=== PATIENT | female | born 1935 | race Caucasian/White ===

== ENCOUNTER 2021-12-03 03:29 | Inpatient (IN) ==
[2021-12-03] MEDS ORDERED: ALBUTEROL 2.5 MG/3 ML NEB RESP TX PRN (05:20)
[2021-12-03] MEDS ORDERED: LACTULOSE 20 GM/30 ML UDCUP PO PRN (05:20)
[2021-12-03] MEDS ORDERED: ONDANSETRON 4 MG/2 ML VIAL IV PRN (05:20)
[2021-12-03] MEDS ORDERED: LORazepam INJ 40 MG in DEXTROSE 5% 30 ML IV PRN (05:20)
[2021-12-03] MEDS: SODIUM CHLORIDE 0.9% 1,000 ML IV SCH ×3 (05:37→21:40)
[2021-12-03] MEDS: NOREPINEPHRINE 8 MG in SODIUM CHLORIDE 0.9% 242 ML IV PRN (06:05)
[2021-12-03 06:25] LABS: Arterial Base Excess iSTAT -6 MMOL/L (-2.5-2.5); Arterial Bicarbonate iSTAT 20.2 MMOL/L (20-26); Arterial O2 Saturation iSTAT 97 % (95-100); Arterial PCO2 iSTAT 42 MM HG (35-48); Arterial PO2 iSTAT 100 MM HG (80-95); Arterial Total CO2 iSTAT 21 MMO/L (23-27)
[2021-12-03] MEDS: MIDAZOLAM 100 MG in SODIUM CHLORIDE 0.9% 80 ML IV PRN (06:50)
[2021-12-03 06:54] LABS: Basophils % 0.1 % (0.0-0.8); Hematocrit 30.5 VOL% (35.7-47.0); Hemoglobin 9.2 GM/DL (12.0-16.0); Immature Granulocytes % 0.4 %; Immature Granulocytes Absolute 0.06 #; Lymphocytes # 0.4 10*3/uL (1.4-4.0); Mean Corpuscular HGB Conc 30.2 GM/DL (32-36); Mean Corpuscular Volume 82.9 FL (87-102); Mean Platelet Volume 10.3 FL (9.6-12.0); Monocytes # 1.2 10*3/uL (0.11-0.8); Monocytes % 8.3 % (1.7-12.7); Neutrophils % 88.2 % (38.7-73.9); Platelet Count 177 T/CUMM (130-400); Red Blood Count 3.68 MC/CUMM (3.8-5.5); Red Cell Distribution Width 20.4 % (9.3-17.3); White Blood Count 13.8 T/CUMM (4-12)
[2021-12-03 07:02] LABS: PT Patient Result 10.7 SECS (10.1-12.1)
[2021-12-03] MEDS: ALBUTEROL/IPRATROPIUM 3 ML NEB RESP TX SCH ×3 (07:04→19:00)
[2021-12-03 07:13] LABS: Albumin 3.1 G/DL (3.4-5.0); Bilirubin,Total 0.8 MG/DL (0.20-1.00); Osmolality,Calculated 284.3 MOS/KG (273-304); Potassium 3.8 MMOL/L (3.5-5.1); Total Protein 6.8 G/DL (6.4-8.2)
[2021-12-03 07:14] LABS: Hypochromia Slight; Lymphocytes 3 % (20-55); Microcytosis Slight; Platelet Estimate Adequate; Total Cells Counted 100
[2021-12-03 08:28] LABS: Arterial Base Excess iSTAT -8 MMOL/L (-2.5-2.5); Arterial Bicarbonate iSTAT 18.8 MMOL/L (20-26); Arterial O2 Saturation iSTAT 97 % (95-100); Arterial PCO2 iSTAT 42 MM HG (35-48); Arterial PO2 iSTAT 106 MM HG (80-95); Arterial Total CO2 iSTAT 20 MMO/L (23-27); Arterial pH iSTAT 7.254 (7.35-7.45)
[2021-12-03 08:34] LABS: RBC,Urine 7 /HPF (0-4); Squamous Epithelial Cell,Urine Occasional /HPF (0-10); Uric Acid Crystals,Urine Many /HPF (<1)
[2021-12-03 08:35] LABS: Bilirubin,Urine Moderate mg/dL (Negative); Blood, Urine Negative (Negative); Glucose,Urine (UA) Negative (Negative); Ketones,Urine 40 mg/dL (Negative); Nitrite,Urine Negative (Negative); Protein,Urine 30 mg/dL (Negative); Urine Appearance Clear (Clear); Urine Color Yellow (Yellow); Urine Specific Gravity > 1.030 (1.001-1.035); Urine Urobilinogen 0.2 eU/dL (<2.0)
[2021-12-03] MEDS: PANTOPRAZOLE 40 MG VIAL IV SCH (08:59)
[2021-12-03] MEDS: PIPERACILLIN/TAZOBACTAM 3,375 MG in SODIUM CHLORIDE 0.9% 100 ML IV SCH ×3 (09:00→23:39)
[2021-12-03] MEDS ORDERED: SODIUM CHLORIDE 0.9% 500 ML IV ONE (09:43)
[2021-12-03 13:56] LABS: CKMB % 14.37 %
[2021-12-04 03:28] LABS: Basophils % 0.1 % (0.0-0.8); Hematocrit 24.1 VOL% (35.7-47.0); Hemoglobin 7.1 GM/DL (12.0-16.0); Immature Granulocytes % 0.4 %; Immature Granulocytes Absolute 0.03 #; Lymphocytes # 0.3 10*3/uL (1.4-4.0); Lymphocytes % 3.3 % (21.3-54.2); Mean Corpuscular HGB Conc 29.5 GM/DL (32-36); Mean Corpuscular Volume 84.3 FL (87-102); Mean Platelet Volume 10.3 FL (9.6-12.0); Monocytes # 0.5 10*3/uL (0.11-0.8); Monocytes % 6.7 % (1.7-12.7); Neutrophils % 89.5 % (38.7-73.9); Platelet Count 142 T/CUMM (130-400); Red Blood Count 2.86 MC/CUMM (3.8-5.5); Red Cell Distribution Width 19.9 % (9.3-17.3); White Blood Count 7.5 T/CUMM (4-12)
[2021-12-04 03:48] LABS: CKMB % 26.38 %
[2021-12-04 03:49] LABS: High Sensitive Troponin I* 1357.9 ng/L (0-54)
[2021-12-04 03:50] LABS: Band Neutrophils 2 % (0-10); Lymphocytes 2 % (20-55); Total Cells Counted 100
[2021-12-04 03:51] LABS: Hypochromia Slight
[2021-12-04 03:52] LABS: Microcytosis 1+; Ovalocytes Slight
[2021-12-04 03:53] LABS: Platelet Estimate Adequate
[2021-12-04 04:06] LABS: Albumin 2.4 G/DL (3.4-5.0); Bilirubin,Total 0.5 MG/DL (0.20-1.00); Calcium 8.5 MG/DL (8.5-10.1); Osmolality,Calculated 304.3 MOS/KG (273-304); Potassium 3.3 MMOL/L (3.5-5.1); Total Protein 5.4 G/DL (6.4-8.2)
[2021-12-04 04:26] LABS: Arterial Base Excess iSTAT -4 MMOL/L (-2.5-2.5); Arterial Bicarbonate iSTAT 21.6 MMOL/L (20-26); Arterial O2 Saturation iSTAT 98 % (95-100); Arterial PCO2 iSTAT 40 MM HG (35-48); Arterial PO2 iSTAT 118 MM HG (80-95); Arterial Total CO2 iSTAT 23 MMO/L (23-27); Arterial pH iSTAT 7.345 (7.35-7.45)
[2021-12-04] MEDS: SODIUM CHLORIDE 0.9% 1,000 ML IV SCH (06:11)
[2021-12-04] MEDS: ALBUTEROL/IPRATROPIUM 3 ML NEB RESP TX SCH ×4 (07:08→19:14)
[2021-12-04] MEDS ORDERED: MAGNESIUM SULF RIDER 4 GM/100 ML PREMIX IV PRN (07:42)
[2021-12-04] MEDS ORDERED: SODIUM CHLORIDE 0.9% 1,000 ML IV PRN (07:45)
[2021-12-04 08:19] LABS: % Iron Saturation 2.3 % (18-50); Ferritin 87.8 ng/mL (8-252)
[2021-12-04 08:22] LABS: Folate 17.24 NG/ML (5.38-24.0)
[2021-12-04] MEDS: POTASSIUM BICARB EFFERVESCENT 20 MEQ TAB.EFF PER TUBE PRN ×3 (08:38→13:29)
[2021-12-04] MEDS: CHOLECALCIFEROL 1,000 UNIT TABLET PO SCH (08:38)
[2021-12-04] MEDS: APIXABAN 2.5 MG TABLET PO SCH ×2 (08:38→21:06)
[2021-12-04] MEDS: DOCUSATE SODIUM 100 MG CAPSULE PO SCH (08:38)
[2021-12-04] MEDS: MULTIVITAMIN (CENTRUM) TABLET PO SCH (08:38)
[2021-12-04] MEDS: SERTRALINE 50 MG TABLET PO SCH (08:39)
[2021-12-04] MEDS: PANTOPRAZOLE 40 MG VIAL IV SCH (08:39)
[2021-12-04] MEDS: risperiDONE 1 MG TABLET PO SCH (08:39)
[2021-12-04] MEDS: PIPERACILLIN/TAZOBACTAM 3,375 MG in SODIUM CHLORIDE 0.9% 100 ML IV SCH ×2 (13:28→21:07)
[2021-12-04] MEDS: MAGNESIUM SULF RIDER 2 GM/50 ML PREMIX IV PRN (13:29)
[2021-12-04 13:36] LABS: Hematocrit 27.1 VOL% (35.7-47.0); Hemoglobin 8.1 GM/DL (12.0-16.0)
[2021-12-04] MEDS: NOREPINEPHRINE 8 MG in SODIUM CHLORIDE 0.9% 242 ML IV PRN (15:38)
[2021-12-04] MEDS: QUEtiapine 25 MG TABLET PO SCH (21:06)
[2021-12-05] MEDS: ALBUTEROL/IPRATROPIUM 3 ML NEB RESP TX SCH ×4 (00:23→19:07)
[2021-12-05 03:32] LABS: Basophils % 0.2 % (0.0-0.8); Eosinophils # 0.1 10*3/uL (0.0-0.87); Eosinophils % 1.6 % (0.00-10.9); Hematocrit 28.1 VOL% (35.7-47.0); Hemoglobin 8.5 GM/DL (12.0-16.0); Immature Granulocytes % 0.6 %; Immature Granulocytes Absolute 0.04 #; Lymphocytes # 0.4 10*3/uL (1.4-4.0); Lymphocytes % 6.3 % (21.3-54.2); Mean Corpuscular HGB Conc 30.2 GM/DL (32-36); Mean Corpuscular Volume 83.9 FL (87-102); Mean Platelet Volume 10.2 FL (9.6-12.0); Monocytes # 0.6 10*3/uL (0.11-0.8); Monocytes % 9.7 % (1.7-12.7); Neutrophils % 81.6 % (38.7-73.9); Platelet Count 151 T/CUMM (130-400); Red Blood Count 3.35 MC/CUMM (3.8-5.5); White Blood Count 6.4 T/CUMM (4-12)
[2021-12-05 04:05] LABS: Albumin 2.3 G/DL (3.4-5.0); Bilirubin,Total 0.4 MG/DL (0.20-1.00); Calcium 8.9 MG/DL (8.5-10.1); Osmolality,Calculated 298.6 MOS/KG (273-304); Potassium 4.3 MMOL/L (3.5-5.1); Total Protein 5.9 G/DL (6.4-8.2)
[2021-12-05 04:39] LABS: Arterial Base Excess iSTAT -1 MMOL/L (-2.5-2.5); Arterial Bicarbonate iSTAT 24.5 MMOL/L (20-26); Arterial O2 Saturation iSTAT 96 % (95-100); Arterial PCO2 iSTAT 42 MM HG (35-48); Arterial PO2 iSTAT 83 MM HG (80-95); Arterial Total CO2 iSTAT 26 MMO/L (23-27); Arterial pH iSTAT 7.379 (7.35-7.45)
[2021-12-05] MEDS: PIPERACILLIN/TAZOBACTAM 3,375 MG in SODIUM CHLORIDE 0.9% 100 ML IV SCH ×3 (05:50→21:29)
[2021-12-05] MEDS: CHOLECALCIFEROL 1,000 UNIT TABLET PO SCH (09:24)
[2021-12-05] MEDS: risperiDONE 1 MG TABLET PO SCH (09:24)
[2021-12-05] MEDS: DOCUSATE SODIUM 100 MG CAPSULE PO SCH (09:24)
[2021-12-05] MEDS: SERTRALINE 50 MG TABLET PO SCH (09:24)
[2021-12-05] MEDS: MULTIVITAMIN (CENTRUM) TABLET PO SCH (09:24)
[2021-12-05] MEDS: PANTOPRAZOLE 40 MG VIAL IV SCH (09:24)
[2021-12-05] MEDS: APIXABAN 2.5 MG TABLET PO SCH ×2 (09:24→20:36)
[2021-12-05] MEDS ORDERED: FUROSEMIDE 40 MG/4 ML VIAL IV ONE (13:41)
[2021-12-05] MEDS: FERROUS SULFATE 325 MG TABLET PO SCH (20:35)
[2021-12-05] MEDS: QUEtiapine 25 MG TABLET PO SCH (20:36)
[2021-12-06] MEDS: ALBUTEROL/IPRATROPIUM 3 ML NEB RESP TX SCH ×4 (00:07→19:56)
[2021-12-06 04:21] LABS: Arterial Base Excess iSTAT 4 MMOL/L (-2.5-2.5); Arterial Bicarbonate iSTAT 29.2 MMOL/L (20-26); Arterial O2 Saturation iSTAT 100 % (95-100); Arterial PCO2 iSTAT 49 MM HG (35-48); Arterial PO2 iSTAT 176 MM HG (80-95); Arterial Total CO2 iSTAT 31 MMO/L (23-27)
[2021-12-06 04:45] LABS: Basophils % 0.2 % (0.0-0.8); Eosinophils # 0.1 10*3/uL (0.0-0.87); Eosinophils % 1.2 % (0.00-10.9); Hematocrit 26.7 VOL% (35.7-47.0); Immature Granulocytes % 0.7 %; Immature Granulocytes Absolute 0.04 #; Lymphocytes # 0.5 10*3/uL (1.4-4.0); Lymphocytes % 9.6 % (21.3-54.2); Mean Corpuscular Volume 85.6 FL (87-102); Mean Platelet Volume 10.1 FL (9.6-12.0); Monocytes # 0.5 10*3/uL (0.11-0.8); Monocytes % 9.6 % (1.7-12.7); Neutrophils % 78.7 % (38.7-73.9); Platelet Count 151 T/CUMM (130-400); Red Blood Count 3.12 MC/CUMM (3.8-5.5); Red Cell Distribution Width 20.3 % (9.3-17.3); White Blood Count 5.6 T/CUMM (4-12)
[2021-12-06 04:47] LABS: Calcium 8.9 MG/DL (8.5-10.1); Osmolality,Calculated 297.8 MOS/KG (273-304); Potassium 4.1 MMOL/L (3.5-5.1)
[2021-12-06] MEDS: PIPERACILLIN/TAZOBACTAM 3,375 MG in SODIUM CHLORIDE 0.9% 100 ML IV SCH ×3 (05:26→21:07)
[2021-12-06] MEDS: MIDAZOLAM 100 MG in SODIUM CHLORIDE 0.9% 80 ML IV PRN (05:27)
[2021-12-06] MEDS: SERTRALINE 50 MG TABLET PO SCH (08:26)
[2021-12-06] MEDS: FERROUS SULFATE 325 MG TABLET PO SCH ×2 (08:26→20:42)
[2021-12-06] MEDS: DOCUSATE SODIUM 100 MG CAPSULE PO SCH (08:27)
[2021-12-06] MEDS: risperiDONE 1 MG TABLET PO SCH (08:27)
[2021-12-06] MEDS: APIXABAN 2.5 MG TABLET PO SCH ×2 (08:27→20:42)
[2021-12-06] MEDS: CHOLECALCIFEROL 1,000 UNIT TABLET PO SCH (08:27)
[2021-12-06] MEDS: MULTIVITAMIN (CENTRUM) TABLET PO SCH (08:27)
[2021-12-06] MEDS: PANTOPRAZOLE 40 MG VIAL IV SCH (09:13)
[2021-12-06] MEDS: methylPREDNISolone SOD SUC 40 MG/1 ML VIAL IV SCH ×2 (09:18→20:43)
[2021-12-06] MEDS ORDERED: DIGOXIN 0.5 MG/2 ML AMP IV ONE (13:02)
[2021-12-06] MEDS ORDERED: DEXTROSE 50% 25 GM/50 ML VIAL IV PRN (13:07)
[2021-12-06] MEDS ORDERED: DEXTROSE 10% 250 ML BAG IV PRN (13:07)
[2021-12-06] MEDS ORDERED: GLUCAGON 1 MG VIAL IM PRN (13:07)
[2021-12-06] MEDS: INSULIN LISPRO 100 UNIT/ML SUBCUT SCH (18:21)
[2021-12-06] MEDS ORDERED: tiZANidine 4 MG TABLET PO PRN (19:45)
[2021-12-06] MEDS: QUEtiapine 25 MG TABLET PO SCH (20:42)
[2021-12-06] MEDS: ACETAMINOPHEN 325 MG TABLET PO PRN (20:45)
[2021-12-07] MEDS: ALBUTEROL/IPRATROPIUM 3 ML NEB RESP TX SCH ×4 (00:24→19:00)
[2021-12-07] MEDS: INSULIN LISPRO 100 UNIT/ML SUBCUT SCH ×4 (00:28→17:46)
[2021-12-07] MEDS ORDERED: SODIUM CHLORIDE 0.9% 500 ML IV ONE (00:30)
[2021-12-07] MEDS ORDERED: METOPROLOL TARTRATE 5 MG/5 ML VIAL IV ONE (01:30)
[2021-12-07 04:29] LABS: Arterial Base Excess iSTAT 2 MMOL/L (-2.5-2.5); Arterial Bicarbonate iSTAT 27.1 MMOL/L (20-26); Arterial O2 Saturation iSTAT 96 % (95-100); Arterial PCO2 iSTAT 45 MM HG (35-48); Arterial PO2 iSTAT 84 MM HG (80-95); Arterial Total CO2 iSTAT 28 MMO/L (23-27); Arterial pH iSTAT 7.385 (7.35-7.45)
[2021-12-07 04:38] LABS: Basophils % 0.2 % (0.0-0.8); Hematocrit 26.1 VOL% (35.7-47.0); Hemoglobin 7.8 GM/DL (12.0-16.0); Immature Granulocytes % 2.8 %; Immature Granulocytes Absolute 0.13 #; Lymphocytes # 0.2 10*3/uL (1.4-4.0); Lymphocytes % 4.2 % (21.3-54.2); Mean Corpuscular HGB Conc 29.9 GM/DL (32-36); Mean Corpuscular Volume 84.2 FL (87-102); Mean Platelet Volume 10.8 FL (9.6-12.0); Monocytes # 0.1 10*3/uL (0.11-0.8); Monocytes % 2.8 % (1.7-12.7); Platelet Count 159 T/CUMM (130-400); Red Cell Distribution Width 20.4 % (9.3-17.3); White Blood Count 4.6 T/CUMM (4-12)
[2021-12-07 04:49] LABS: Osmolality,Calculated 303.8 MOS/KG (273-304); Potassium 4.7 MMOL/L (3.5-5.1)
[2021-12-07 04:58] LABS: Band Neutrophils 2 % (0-10); Hypochromia 1+; Lymphocytes 3 % (20-55); Total Cells Counted 100
[2021-12-07 04:59] LABS: Anisocytosis 1+; Microcytosis 1+
[2021-12-07] MEDS: PIPERACILLIN/TAZOBACTAM 3,375 MG in SODIUM CHLORIDE 0.9% 100 ML IV SCH ×3 (05:55→21:00)
[2021-12-07] MEDS: METOPROLOL TARTRATE 25 MG TABLET PO SCH ×2 (09:29→21:00)
[2021-12-07] MEDS: APIXABAN 2.5 MG TABLET PO SCH ×2 (09:30→20:59)
[2021-12-07] MEDS: risperiDONE 1 MG TABLET PO SCH (09:30)
[2021-12-07] MEDS: CHOLECALCIFEROL 1,000 UNIT TABLET PO SCH (09:30)
[2021-12-07] MEDS: MULTIVITAMIN (CENTRUM) TABLET PO SCH (09:30)
[2021-12-07] MEDS: SERTRALINE 50 MG TABLET PO SCH (09:30)
[2021-12-07] MEDS: FERROUS SULFATE 325 MG TABLET PO SCH ×2 (09:30→20:59)
[2021-12-07] MEDS: DOCUSATE SODIUM 100 MG CAPSULE PO SCH (09:30)
[2021-12-07] MEDS: methylPREDNISolone SOD SUC 40 MG/1 ML VIAL IV SCH ×2 (09:31→20:59)
[2021-12-07] MEDS: PANTOPRAZOLE 40 MG VIAL IV SCH (09:33)
[2021-12-07] MEDS ORDERED: FUROSEMIDE 40 MG/4 ML VIAL IV ONE (11:36)
[2021-12-07] MEDS: QUEtiapine 25 MG TABLET PO SCH (20:59)
[2021-12-08] MEDS: INSULIN LISPRO 100 UNIT/ML SUBCUT SCH ×4 (00:16→17:47)
[2021-12-08] MEDS: ALBUTEROL/IPRATROPIUM 3 ML NEB RESP TX SCH ×4 (00:48→19:20)
[2021-12-08 03:43] LABS: Basophils % 0.2 % (0.0-0.8); Hematocrit 28.9 VOL% (35.7-47.0); Hemoglobin 8.4 GM/DL (12.0-16.0); Immature Granulocytes % 1.8 %; Immature Granulocytes Absolute 0.08 #; Lymphocytes # 0.2 10*3/uL (1.4-4.0); Lymphocytes % 4.6 % (21.3-54.2); Mean Corpuscular HGB Conc 29.1 GM/DL (32-36); Mean Corpuscular Volume 85.8 FL (87-102); Mean Platelet Volume 10.5 FL (9.6-12.0); Monocytes # 0.1 10*3/uL (0.11-0.8); Monocytes % 2.1 % (1.7-12.7); NRBC # 0.02 10*3/uL; Neutrophils % 91.3 % (38.7-73.9); Platelet Count 180 T/CUMM (130-400); Red Blood Count 3.37 MC/CUMM (3.8-5.5); Red Cell Distribution Width 19.9 % (9.3-17.3); White Blood Count 4.4 T/CUMM (4-12)
[2021-12-08 03:55] LABS: Osmolality,Calculated 301.3 MOS/KG (273-304); Potassium 4.6 MMOL/L (3.5-5.1)
[2021-12-08 04:25] LABS: Lymphocytes 5 % (20-55); Total Cells Counted 100
[2021-12-08 04:26] LABS: Platelet Estimate Adequate
[2021-12-08 05:02] LABS: Arterial Base Excess iSTAT 5 MMOL/L (-2.5-2.5); Arterial O2 Saturation iSTAT 96 % (95-100); Arterial PCO2 iSTAT 50 MM HG (35-48); Arterial PO2 iSTAT 81 MM HG (80-95); Arterial Total CO2 iSTAT 33 MMO/L (23-27); Arterial pH iSTAT 7.401 (7.35-7.45)
[2021-12-08] MEDS: PIPERACILLIN/TAZOBACTAM 3,375 MG in SODIUM CHLORIDE 0.9% 100 ML IV SCH ×3 (05:32→21:00)
[2021-12-08] MEDS ORDERED: FUROSEMIDE 40 MG/4 ML VIAL IV ONE (09:00)
[2021-12-08] MEDS: METOPROLOL TARTRATE 25 MG TABLET PO SCH ×2 (09:07→20:58)
[2021-12-08] MEDS: DOCUSATE SODIUM 100 MG CAPSULE PO SCH (09:08)
[2021-12-08] MEDS: PANTOPRAZOLE 40 MG VIAL IV SCH (09:09)
[2021-12-08] MEDS: APIXABAN 2.5 MG TABLET PO SCH ×2 (09:09→20:58)
[2021-12-08] MEDS: CHOLECALCIFEROL 1,000 UNIT TABLET PO SCH (09:09)
[2021-12-08] MEDS: FERROUS SULFATE 325 MG TABLET PO SCH ×2 (09:09→20:59)
[2021-12-08] MEDS: MULTIVITAMIN (CENTRUM) TABLET PO SCH (09:09)
[2021-12-08] MEDS: risperiDONE 1 MG TABLET PO SCH (09:09)
[2021-12-08] MEDS: methylPREDNISolone SOD SUC 40 MG/1 ML VIAL IV SCH ×2 (09:14→20:59)
[2021-12-08] MEDS: SERTRALINE 50 MG TABLET PO SCH (09:16)
[2021-12-08] MEDS: ASPIRIN CHEW 81 MG TABLET PO SCH (12:02)
[2021-12-08 12:10] LABS: Risk Ratio 2.93; VLDL Cholesterol 26.2 MG/DL
[2021-12-08] MEDS: MIDAZOLAM 100 MG in SODIUM CHLORIDE 0.9% 80 ML IV PRN (20:32)
[2021-12-08] MEDS: ATORVASTATIN 80 MG TABLET PO SCH (20:58)
[2021-12-08] MEDS: QUEtiapine 25 MG TABLET PO SCH (20:58)
[2021-12-09] MEDS: INSULIN LISPRO 100 UNIT/ML SUBCUT SCH ×4 (00:28→17:59)
[2021-12-09] MEDS: ALBUTEROL/IPRATROPIUM 3 ML NEB RESP TX SCH ×4 (00:48→19:06)
[2021-12-09 03:28] LABS: Basophils % 0.3 % (0.0-0.8); Hematocrit 29.4 VOL% (35.7-47.0); Hemoglobin 8.9 GM/DL (12.0-16.0); Immature Granulocytes % 6.3 %; Immature Granulocytes Absolute 0.25 #; Lymphocytes # 0.2 10*3/uL (1.4-4.0); Lymphocytes % 5.8 % (21.3-54.2); Mean Corpuscular HGB Conc 30.3 GM/DL (32-36); Mean Corpuscular Volume 83.3 FL (87-102); Mean Platelet Volume 10.7 FL (9.6-12.0); Monocytes # 0.1 10*3/uL (0.11-0.8); Monocytes % 3.3 % (1.7-12.7); NRBC # 0.02 10*3/uL; Neutrophils % 84.3 % (38.7-73.9); Platelet Count 228 T/CUMM (130-400); Red Blood Count 3.53 MC/CUMM (3.8-5.5); Red Cell Distribution Width 19.8 % (9.3-17.3)
[2021-12-09 03:40] LABS: Calcium 8.9 MG/DL (8.5-10.1); Osmolality,Calculated 302.3 MOS/KG (273-304); Potassium 4.2 MMOL/L (3.5-5.1)
[2021-12-09 04:02] LABS: Lymphocytes 7 % (20-55); Nucleated Red Blood Cells 1 /100 WBC (0-5); Total Cells Counted 100
[2021-12-09 04:03] LABS: Anisocytosis 1+; Hypochromia 1+; Microcytosis 1+; Polychromasia Slight
[2021-12-09 04:05] LABS: Platelet Estimate Normal
[2021-12-09 04:45] LABS: Arterial Base Excess iSTAT 7 MMOL/L (-2.5-2.5); Arterial Bicarbonate iSTAT 31.2 MMOL/L (20-26); Arterial O2 Saturation iSTAT 95 % (95-100); Arterial PCO2 iSTAT 40 MM HG (35-48); Arterial PO2 iSTAT 70 MM HG (80-95); Arterial Total CO2 iSTAT 32 MMO/L (23-27)
[2021-12-09] MEDS: PIPERACILLIN/TAZOBACTAM 3,375 MG in SODIUM CHLORIDE 0.9% 100 ML IV SCH ×3 (05:43→21:34)
[2021-12-09] MEDS: DOCUSATE SODIUM 100 MG CAPSULE PO SCH (09:20)
[2021-12-09] MEDS: METOPROLOL TARTRATE 25 MG TABLET PO SCH ×2 (09:21→20:49)
[2021-12-09] MEDS: PANTOPRAZOLE 40 MG VIAL IV SCH (09:22)
[2021-12-09] MEDS: APIXABAN 2.5 MG TABLET PO SCH ×2 (09:22→20:49)
[2021-12-09] MEDS: FERROUS SULFATE 325 MG TABLET PO SCH ×2 (09:22→20:49)
[2021-12-09] MEDS: MULTIVITAMIN (CENTRUM) TABLET PO SCH (09:22)
[2021-12-09] MEDS: ASPIRIN CHEW 81 MG TABLET PO SCH (09:22)
[2021-12-09] MEDS: CHOLECALCIFEROL 1,000 UNIT TABLET PO SCH (09:22)
[2021-12-09] MEDS: risperiDONE 1 MG TABLET PO SCH (09:22)
[2021-12-09] MEDS: SERTRALINE 50 MG TABLET PO SCH (09:22)
[2021-12-09] MEDS: methylPREDNISolone SOD SUC 40 MG/1 ML VIAL IV SCH ×2 (09:25→20:49)
[2021-12-09] MEDS: QUEtiapine 25 MG TABLET PO SCH (20:49)
[2021-12-09] MEDS: ATORVASTATIN 80 MG TABLET PO SCH (20:49)
[2021-12-10] MEDS: INSULIN LISPRO 100 UNIT/ML SUBCUT SCH ×4 (00:06→17:49)
[2021-12-10] MEDS: ALBUTEROL/IPRATROPIUM 3 ML NEB RESP TX SCH ×4 (00:26→19:49)
[2021-12-10 03:19] LABS: Arterial Base Excess iSTAT 10 MMOL/L (-2.5-2.5); Arterial Bicarbonate iSTAT 34.1 MMOL/L (20-26); Arterial O2 Saturation iSTAT 99 % (95-100); Arterial PCO2 iSTAT 43 MM HG (35-48); Arterial PO2 iSTAT 119 MM HG (80-95); Arterial Total CO2 iSTAT 35 MMO/L (23-27); Arterial pH iSTAT 7.505 (7.35-7.45)
[2021-12-10 04:07] LABS: Basophils % 0.2 % (0.0-0.8); Hematocrit 30.6 VOL% (35.7-47.0); Hemoglobin 9.2 GM/DL (12.0-16.0); Immature Granulocytes % 5.2 %; Immature Granulocytes Absolute 0.24 #; Lymphocytes # 0.3 10*3/uL (1.4-4.0); Lymphocytes % 5.6 % (21.3-54.2); Mean Corpuscular HGB Conc 30.1 GM/DL (32-36); Mean Corpuscular Volume 83.4 FL (87-102); Mean Platelet Volume 10.3 FL (9.6-12.0); Monocytes # 0.2 10*3/uL (0.11-0.8); Monocytes % 3.9 % (1.7-12.7); Neutrophils % 85.1 % (38.7-73.9); Platelet Count 278 T/CUMM (130-400); Red Blood Count 3.67 MC/CUMM (3.8-5.5); Red Cell Distribution Width 19.7 % (9.3-17.3); White Blood Count 4.6 T/CUMM (4-12)
[2021-12-10 04:18] LABS: Calcium 8.5 MG/DL (8.5-10.1); Potassium 4.8 MMOL/L (3.5-5.1)
[2021-12-10 04:27] LABS: Hypochromia Slight; Lymphocytes 8 % (20-55); Microcytosis Slight; Platelet Estimate Adequate; Total Cells Counted 100
[2021-12-10] MEDS: PIPERACILLIN/TAZOBACTAM 3,375 MG in SODIUM CHLORIDE 0.9% 100 ML IV SCH ×3 (05:20→21:08)
[2021-12-10] MEDS: ASPIRIN CHEW 81 MG TABLET PO SCH (08:30)
[2021-12-10] MEDS: FERROUS SULFATE 325 MG TABLET PO SCH ×2 (08:30→21:09)
[2021-12-10] MEDS: METOPROLOL TARTRATE 25 MG TABLET PO SCH ×2 (08:31→21:09)
[2021-12-10] MEDS: risperiDONE 1 MG TABLET PO SCH (08:31)
[2021-12-10] MEDS: CHOLECALCIFEROL 1,000 UNIT TABLET PO SCH (08:31)
[2021-12-10] MEDS: SERTRALINE 50 MG TABLET PO SCH (08:31)
[2021-12-10] MEDS: APIXABAN 2.5 MG TABLET PO SCH ×2 (08:31→21:09)
[2021-12-10] MEDS: MULTIVITAMIN (CENTRUM) TABLET PO SCH (08:31)
[2021-12-10] MEDS: PANTOPRAZOLE 40 MG VIAL IV SCH (08:33)
[2021-12-10] MEDS: methylPREDNISolone SOD SUC 40 MG/1 ML VIAL IV SCH ×2 (08:34→21:08)
[2021-12-10] MEDS: DOCUSATE SODIUM 100 MG CAPSULE PO SCH (08:37)
[2021-12-10] MEDS ORDERED: METOPROLOL TARTRATE 25 MG TABLET PO ONE (09:57)
[2021-12-10] MEDS: ATORVASTATIN 80 MG TABLET PO SCH (21:09)
[2021-12-10] MEDS: QUEtiapine 25 MG TABLET PO SCH (21:09)
[2021-12-11] MEDS: INSULIN LISPRO 100 UNIT/ML SUBCUT SCH ×5 (00:08→23:55)
[2021-12-11 03:32] LABS: Basophils % 0.2 % (0.0-0.8); Hematocrit 30.3 VOL% (35.7-47.0); Immature Granulocytes % 3.5 %; Lymphocytes # 0.3 10*3/uL (1.4-4.0); Lymphocytes % 4.8 % (21.3-54.2); Mean Corpuscular HGB Conc 29.7 GM/DL (32-36); Mean Corpuscular Volume 84.4 FL (87-102); Mean Platelet Volume 10.3 FL (9.6-12.0); Monocytes # 0.2 10*3/uL (0.11-0.8); Neutrophils % 88.5 % (38.7-73.9); Platelet Count 318 T/CUMM (130-400); Red Blood Count 3.59 MC/CUMM (3.8-5.5); Red Cell Distribution Width 19.8 % (9.3-17.3); White Blood Count 5.7 T/CUMM (4-12)
[2021-12-11 03:51] LABS: Calcium 8.4 MG/DL (8.5-10.1); Osmolality,Calculated 300.1 MOS/KG (273-304); Potassium 4.7 MMOL/L (3.5-5.1)
[2021-12-11 04:07] LABS: Band Neutrophils 1 % (0-10); Hypochromia Slight; Lymphocytes 2 % (20-55); Total Cells Counted 100
[2021-12-11 04:08] LABS: Microcytosis 1+; Polychromasia Slight
[2021-12-11] MEDS: PIPERACILLIN/TAZOBACTAM 3,375 MG in SODIUM CHLORIDE 0.9% 100 ML IV SCH (06:08)
[2021-12-11] MEDS: ALBUTEROL/IPRATROPIUM 3 ML NEB RESP TX SCH ×4 (07:46→19:32)
[2021-12-11] MEDS: methylPREDNISolone SOD SUC 40 MG/1 ML VIAL IV SCH ×2 (08:57→20:33)
[2021-12-11] MEDS: PANTOPRAZOLE 40 MG VIAL IV SCH (08:57)
[2021-12-11] MEDS: risperiDONE 1 MG TABLET PO SCH (08:58)
[2021-12-11] MEDS: MULTIVITAMIN (CENTRUM) TABLET PO SCH (08:58)
[2021-12-11] MEDS: APIXABAN 2.5 MG TABLET PO SCH ×2 (08:58→20:34)
[2021-12-11] MEDS: ASPIRIN CHEW 81 MG TABLET PO SCH (08:58)
[2021-12-11] MEDS: METOPROLOL TARTRATE 25 MG TABLET PO SCH ×2 (08:58→20:34)
[2021-12-11] MEDS: CHOLECALCIFEROL 1,000 UNIT TABLET PO SCH (08:58)
[2021-12-11] MEDS: SERTRALINE 50 MG TABLET PO SCH (08:58)
[2021-12-11] MEDS: FERROUS SULFATE 325 MG TABLET PO SCH ×2 (08:58→20:34)
[2021-12-11] MEDS: DOCUSATE SODIUM 100 MG CAPSULE PO SCH (08:59)
[2021-12-11] MEDS: ATORVASTATIN 80 MG TABLET PO SCH (20:34)
[2021-12-11] MEDS: QUEtiapine 25 MG TABLET PO SCH (20:34)
[2021-12-12] MEDS: ALBUTEROL/IPRATROPIUM 3 ML NEB RESP TX SCH ×4 (00:37→17:00)
[2021-12-12 04:26] LABS: Basophils % 0.1 % (0.0-0.8); Hematocrit 29.9 VOL% (35.7-47.0); Hemoglobin 8.9 GM/DL (12.0-16.0); Immature Granulocytes % 2.4 %; Immature Granulocytes Absolute 0.17 #; Lymphocytes # 0.4 10*3/uL (1.4-4.0); Lymphocytes % 5.6 % (21.3-54.2); Mean Corpuscular HGB Conc 29.8 GM/DL (32-36); Monocytes # 0.3 10*3/uL (0.11-0.8); Monocytes % 3.6 % (1.7-12.7); Neutrophils % 88.3 % (38.7-73.9); Platelet Count 357 T/CUMM (130-400); Red Blood Count 3.56 MC/CUMM (3.8-5.5); Red Cell Distribution Width 19.8 % (9.3-17.3)
[2021-12-12 04:42] LABS: Calcium 8.4 MG/DL (8.5-10.1); Osmolality,Calculated 296.1 MOS/KG (273-304); Potassium 4.6 MMOL/L (3.5-5.1)
[2021-12-12] MEDS: INSULIN LISPRO 100 UNIT/ML SUBCUT SCH ×4 (05:50→23:37)
[2021-12-12] MEDS: PANTOPRAZOLE 40 MG VIAL IV SCH (09:10)
[2021-12-12] MEDS: methylPREDNISolone SOD SUC 40 MG/1 ML VIAL IV SCH ×2 (09:10→20:26)
[2021-12-12] MEDS: MULTIVITAMIN (CENTRUM) TABLET PO SCH (09:10)
[2021-12-12] MEDS: CHOLECALCIFEROL 1,000 UNIT TABLET PO SCH (09:11)
[2021-12-12] MEDS: ASPIRIN CHEW 81 MG TABLET PO SCH (09:11)
[2021-12-12] MEDS: SERTRALINE 50 MG TABLET PO SCH (09:11)
[2021-12-12] MEDS: DOCUSATE SODIUM 100 MG CAPSULE PO SCH (09:11)
[2021-12-12] MEDS: APIXABAN 2.5 MG TABLET PO SCH ×2 (09:11→20:26)
[2021-12-12] MEDS: METOPROLOL TARTRATE 25 MG TABLET PO SCH ×2 (09:11→20:26)
[2021-12-12] MEDS: FERROUS SULFATE 325 MG TABLET PO SCH ×2 (09:11→20:26)
[2021-12-12] MEDS: risperiDONE 1 MG TABLET PO SCH (09:11)
[2021-12-12] MEDS: SODIUM CHLORIDE 0.9% 1,000 ML IV SCH ×2 (09:13→22:10)
[2021-12-12] MEDS: ACETAMINOPHEN 325 MG TABLET PO PRN (10:43)
[2021-12-12] MEDS: QUEtiapine 25 MG TABLET PO SCH (20:25)
[2021-12-12] MEDS: ATORVASTATIN 80 MG TABLET PO SCH (20:26)
[2021-12-13] MEDS: ALBUTEROL/IPRATROPIUM 3 ML NEB RESP TX SCH ×5 (00:35→23:06)
[2021-12-13 04:28] LABS: Hematocrit 31.2 VOL% (35.7-47.0); Hemoglobin 9.2 GM/DL (12.0-16.0); Immature Granulocytes % 1.4 %; Immature Granulocytes Absolute 0.11 #; Lymphocytes # 0.4 10*3/uL (1.4-4.0); Lymphocytes % 5.5 % (21.3-54.2); Mean Corpuscular HGB Conc 29.5 GM/DL (32-36); Mean Platelet Volume 10.1 FL (9.6-12.0); Monocytes # 0.2 10*3/uL (0.11-0.8); Monocytes % 2.9 % (1.7-12.7); Neutrophils % 90.2 % (38.7-73.9); Platelet Count 403 T/CUMM (130-400); Red Blood Count 3.67 MC/CUMM (3.8-5.5); Red Cell Distribution Width 19.7 % (9.3-17.3); White Blood Count 7.9 T/CUMM (4-12)
[2021-12-13 04:44] LABS: Calcium 8.5 MG/DL (8.5-10.1); Osmolality,Calculated 302.7 MOS/KG (273-304); Potassium 4.6 MMOL/L (3.5-5.1)
[2021-12-13] MEDS: INSULIN LISPRO 100 UNIT/ML SUBCUT SCH ×4 (05:35→23:29)
[2021-12-13] MEDS: methylPREDNISolone SOD SUC 40 MG/1 ML VIAL IV SCH ×2 (08:57→20:49)
[2021-12-13] MEDS: PANTOPRAZOLE 40 MG VIAL IV SCH (08:57)
[2021-12-13] MEDS: METOPROLOL TARTRATE 25 MG TABLET PO SCH ×2 (08:58→20:21)
[2021-12-13] MEDS: ASPIRIN CHEW 81 MG TABLET PO SCH (08:58)
[2021-12-13] MEDS: FERROUS SULFATE 325 MG TABLET PO SCH ×2 (08:58→20:22)
[2021-12-13] MEDS: CHOLECALCIFEROL 1,000 UNIT TABLET PO SCH (08:58)
[2021-12-13] MEDS: risperiDONE 1 MG TABLET PO SCH (08:58)
[2021-12-13] MEDS: DOCUSATE SODIUM 100 MG CAPSULE PO SCH (08:58)
[2021-12-13] MEDS: APIXABAN 2.5 MG TABLET PO SCH ×2 (08:58→20:21)
[2021-12-13] MEDS: SERTRALINE 50 MG TABLET PO SCH (08:58)
[2021-12-13] MEDS: MULTIVITAMIN (CENTRUM) TABLET PO SCH (08:58)
[2021-12-13] MEDS: SODIUM CHLORIDE 0.9% 1,000 ML IV SCH (11:29)
[2021-12-13] MEDS: QUEtiapine 25 MG TABLET PO SCH (20:21)
[2021-12-13] MEDS: ATORVASTATIN 80 MG TABLET PO SCH (20:21)
[2021-12-13] MEDS: ACETAMINOPHEN 325 MG TABLET PO PRN (20:22)
[2021-12-14] MEDS: SODIUM CHLORIDE 0.9% 1,000 ML IV SCH ×2 (01:05→18:42)
[2021-12-14] MEDS ORDERED: METOPROLOL TARTRATE 5 MG/5 ML VIAL IV ONE ×4 (02:15→21:09)
[2021-12-14 03:55] LABS: Basophils % 0.1 % (0.0-0.8); Hematocrit 31.5 VOL% (35.7-47.0); Hemoglobin 9.4 GM/DL (12.0-16.0); Immature Granulocytes % 1.4 %; Immature Granulocytes Absolute 0.12 #; Lymphocytes # 0.4 10*3/uL (1.4-4.0); Lymphocytes % 4.2 % (21.3-54.2); Mean Corpuscular HGB Conc 29.8 GM/DL (32-36); Mean Corpuscular Volume 84.9 FL (87-102); Mean Platelet Volume 9.9 FL (9.6-12.0); Monocytes # 0.1 10*3/uL (0.11-0.8); Monocytes % 1.3 % (1.7-12.7); Platelet Count 448 T/CUMM (130-400); Red Blood Count 3.71 MC/CUMM (3.8-5.5); Red Cell Distribution Width 19.7 % (9.3-17.3); White Blood Count 8.5 T/CUMM (4-12)
[2021-12-14 04:12] LABS: Calcium 8.4 MG/DL (8.5-10.1); Osmolality,Calculated 301.7 MOS/KG (273-304); Potassium 4.4 MMOL/L (3.5-5.1)
[2021-12-14 04:59] LABS: Lymphocytes 5 % (20-55); Total Cells Counted 100
[2021-12-14 05:00] LABS: Platelet Estimate Increased
[2021-12-14] MEDS: INSULIN LISPRO 100 UNIT/ML SUBCUT SCH ×3 (05:21→18:42)
[2021-12-14] MEDS: ALBUTEROL/IPRATROPIUM 3 ML NEB RESP TX SCH ×3 (07:22→18:53)
[2021-12-14] MEDS: ASPIRIN CHEW 81 MG TABLET PO SCH (17:08)
[2021-12-14] MEDS: FERROUS SULFATE 325 MG TABLET PO SCH ×2 (17:08→20:15)
[2021-12-14] MEDS: DOCUSATE SODIUM 100 MG CAPSULE PO SCH (17:08)
[2021-12-14] MEDS: APIXABAN 2.5 MG TABLET PO SCH ×2 (17:08→20:15)
[2021-12-14] MEDS: MULTIVITAMIN (CENTRUM) TABLET PO SCH (17:08)
[2021-12-14] MEDS: risperiDONE 1 MG TABLET PO SCH (17:09)
[2021-12-14] MEDS: PANTOPRAZOLE 40 MG VIAL IV SCH (17:09)
[2021-12-14] MEDS: methylPREDNISolone SOD SUC 40 MG/1 ML VIAL IV SCH ×2 (17:09→20:16)
[2021-12-14] MEDS: METOPROLOL TARTRATE 25 MG TABLET PO SCH ×2 (17:09→20:15)
[2021-12-14] MEDS: CHOLECALCIFEROL 1,000 UNIT TABLET PO SCH (17:10)
[2021-12-14] MEDS: SERTRALINE 50 MG TABLET PO SCH (17:10)
[2021-12-14] MEDS: QUEtiapine 25 MG TABLET PO SCH (20:15)
[2021-12-14] MEDS: ATORVASTATIN 80 MG TABLET PO SCH (20:15)
[2021-12-14] MEDS ORDERED: FUROSEMIDE 40 MG/4 ML VIAL IV ONE (21:26)
[2021-12-15] MEDS: ALBUTEROL/IPRATROPIUM 3 ML NEB RESP TX SCH ×4 (00:05→19:15)
[2021-12-15] MEDS: INSULIN LISPRO 100 UNIT/ML SUBCUT SCH ×5 (00:05→21:05)
[2021-12-15 04:38] LABS: Hematocrit 29.8 VOL% (35.7-47.0); Hemoglobin 8.7 GM/DL (12.0-16.0); Immature Granulocytes % 0.7 %; Immature Granulocytes Absolute 0.06 #; Lymphocytes # 0.3 10*3/uL (1.4-4.0); Lymphocytes % 3.1 % (21.3-54.2); Mean Corpuscular HGB Conc 29.2 GM/DL (32-36); Mean Corpuscular Volume 85.1 FL (87-102); Mean Platelet Volume 10.3 FL (9.6-12.0); Monocytes # 0.2 10*3/uL (0.11-0.8); Monocytes % 1.8 % (1.7-12.7); Neutrophils % 94.4 % (38.7-73.9); Platelet Count 469 T/CUMM (130-400); Red Cell Distribution Width 19.9 % (9.3-17.3); White Blood Count 9.1 T/CUMM (4-12)
[2021-12-15 04:46] LABS: Calcium 8.9 MG/DL (8.5-10.1); Osmolality,Calculated 300.7 MOS/KG (273-304); Potassium 3.9 MMOL/L (3.5-5.1)
[2021-12-15 07:41] LABS: Lymphocytes 4 % (20-55); Total Cells Counted 100
[2021-12-15 07:42] LABS: Hypochromia 1+; Microcytosis 1+; Polychromasia Slight
[2021-12-15 07:43] LABS: Platelet Estimate Increased
[2021-12-15] MEDS: MULTIVITAMIN (CENTRUM) TABLET PO SCH (08:40)
[2021-12-15] MEDS: ASPIRIN CHEW 81 MG TABLET PO SCH (08:40)
[2021-12-15] MEDS: FERROUS SULFATE 325 MG TABLET PO SCH ×2 (08:41→21:05)
[2021-12-15] MEDS: APIXABAN 2.5 MG TABLET PO SCH ×2 (08:41→21:05)
[2021-12-15] MEDS: risperiDONE 1 MG TABLET PO SCH (08:41)
[2021-12-15] MEDS: CHOLECALCIFEROL 1,000 UNIT TABLET PO SCH (08:41)
[2021-12-15] MEDS: methylPREDNISolone SOD SUC 40 MG/1 ML VIAL IV SCH ×2 (08:41→21:06)
[2021-12-15] MEDS: METOPROLOL TARTRATE 25 MG TABLET PO SCH ×2 (08:41→21:05)
[2021-12-15] MEDS: SERTRALINE 50 MG TABLET PO SCH (08:41)
[2021-12-15] MEDS: DOCUSATE SODIUM 100 MG CAPSULE PO SCH (08:42)
[2021-12-15] MEDS: PANTOPRAZOLE 40 MG VIAL IV SCH (08:42)
[2021-12-15] MEDS: QUEtiapine 25 MG TABLET PO SCH (21:05)
[2021-12-15] MEDS: ATORVASTATIN 80 MG TABLET PO SCH (21:05)
[2021-12-15] MEDS: POTASSIUM CHLORIDE 20 MEQ TABLET PO PRN (21:06)
[2021-12-15] MEDS: MAGNESIUM SULF RIDER 2 GM/50 ML PREMIX IV PRN (21:07)
[2021-12-16] MEDS: ALBUTEROL/IPRATROPIUM 3 ML NEB RESP TX SCH ×4 (00:34→19:15)
[2021-12-16 03:58] LABS: Hematocrit 31.1 VOL% (35.7-47.0); Hemoglobin 9.2 GM/DL (12.0-16.0); Immature Granulocytes % 0.5 %; Immature Granulocytes Absolute 0.02 #; Lymphocytes # 0.3 10*3/uL (1.4-4.0); Lymphocytes % 6.7 % (21.3-54.2); Mean Corpuscular HGB Conc 29.6 GM/DL (32-36); Mean Corpuscular Volume 85.2 FL (87-102); Mean Platelet Volume 10.3 FL (9.6-12.0); Monocytes # 0.2 10*3/uL (0.11-0.8); Monocytes % 4.1 % (1.7-12.7); Neutrophils % 88.7 % (38.7-73.9); Platelet Count 489 T/CUMM (130-400); Red Blood Count 3.65 MC/CUMM (3.8-5.5); Red Cell Distribution Width 19.9 % (9.3-17.3); White Blood Count 4.2 T/CUMM (4-12)
[2021-12-16 04:15] LABS: Calcium 8.5 MG/DL (8.5-10.1); Osmolality,Calculated 304.3 MOS/KG (273-304); Potassium 4.5 MMOL/L (3.5-5.1)
[2021-12-16] MEDS: INSULIN LISPRO 100 UNIT/ML SUBCUT SCH ×4 (07:43→20:09)
[2021-12-16] MEDS: FERROUS SULFATE 325 MG TABLET PO SCH ×2 (08:36→20:08)
[2021-12-16] MEDS: risperiDONE 1 MG TABLET PO SCH (08:36)
[2021-12-16] MEDS: MULTIVITAMIN (CENTRUM) TABLET PO SCH (08:36)
[2021-12-16] MEDS: CHOLECALCIFEROL 1,000 UNIT TABLET PO SCH (08:36)
[2021-12-16] MEDS: SERTRALINE 50 MG TABLET PO SCH (08:36)
[2021-12-16] MEDS: APIXABAN 2.5 MG TABLET PO SCH ×2 (08:36→20:08)
[2021-12-16] MEDS: METOPROLOL TARTRATE 25 MG TABLET PO SCH ×2 (08:36→20:08)
[2021-12-16] MEDS: ASPIRIN CHEW 81 MG TABLET PO SCH (08:36)
[2021-12-16] MEDS: DOCUSATE SODIUM 100 MG CAPSULE PO SCH ×2 (08:36→09:01)
[2021-12-16] MEDS: PANTOPRAZOLE 40 MG VIAL IV SCH (08:37)
[2021-12-16] MEDS: methylPREDNISolone SOD SUC 40 MG/1 ML VIAL IV SCH (08:37)
[2021-12-16] MEDS ORDERED: methylPREDNISolone SOD SUC 40 MG/1 ML VIAL IV ONE (09:13)
[2021-12-16] MEDS: ATORVASTATIN 80 MG TABLET PO SCH (20:08)
[2021-12-16] MEDS: QUEtiapine 25 MG TABLET PO SCH (20:08)
[2021-12-17] MEDS: ALBUTEROL/IPRATROPIUM 3 ML NEB RESP TX SCH ×5 (00:52→23:51)
[2021-12-17 04:29] LABS: Calcium 8.5 MG/DL (8.5-10.1); Potassium 3.4 MMOL/L (3.5-5.1)
[2021-12-17 04:32] LABS: Eosinophils % 0.5 % (0.00-10.9); Hematocrit 29.2 VOL% (35.7-47.0); Immature Granulocytes % 0.4 %; Immature Granulocytes Absolute 0.02 #; Lymphocytes # 1.1 10*3/uL (1.4-4.0); Lymphocytes % 18.7 % (21.3-54.2); Mean Corpuscular HGB Conc 29.5 GM/DL (32-36); Mean Corpuscular Volume 85.1 FL (87-102); Mean Platelet Volume 10.1 FL (9.6-12.0); Monocytes # 0.4 10*3/uL (0.11-0.8); Monocytes % 7.1 % (1.7-12.7); Neutrophils % 73.3 % (38.7-73.9); Platelet Count 479 T/CUMM (130-400); Red Blood Count 3.43 MC/CUMM (3.8-5.5); Red Cell Distribution Width 20.2 % (9.3-17.3); White Blood Count 5.6 T/CUMM (4-12)
[2021-12-17 04:33] LABS: Hemoglobin 8.6 GM/DL (12.0-16.0)
[2021-12-17] MEDS: hydrALAZINE 20 MG/1 ML VIAL IV PRN (06:10)
[2021-12-17] MEDS: INSULIN LISPRO 100 UNIT/ML SUBCUT SCH ×4 (08:26→21:23)
[2021-12-17] MEDS: APIXABAN 2.5 MG TABLET PO SCH ×2 (09:20→21:22)
[2021-12-17] MEDS: DOCUSATE SODIUM 100 MG CAPSULE PO SCH (09:20)
[2021-12-17] MEDS: ASPIRIN CHEW 81 MG TABLET PO SCH (09:20)
[2021-12-17] MEDS: MULTIVITAMIN (CENTRUM) TABLET PO SCH (09:20)
[2021-12-17] MEDS: FERROUS SULFATE 325 MG TABLET PO SCH ×2 (09:21→21:22)
[2021-12-17] MEDS: CHOLECALCIFEROL 1,000 UNIT TABLET PO SCH (09:22)
[2021-12-17] MEDS: FUROSEMIDE 40 MG TABLET PO SCH (09:22)
[2021-12-17] MEDS: METOPROLOL TARTRATE 50 MG TABLET PO SCH ×2 (09:22→21:23)
[2021-12-17] MEDS: SERTRALINE 50 MG TABLET PO SCH (09:22)
[2021-12-17] MEDS: risperiDONE 1 MG TABLET PO SCH (09:22)
[2021-12-17 18:37] LABS: Arterial Base Excess iSTAT 6 MMOL/L (-2.5-2.5); Arterial Bicarbonate iSTAT 30.5 MMOL/L (20-26); Arterial O2 Saturation iSTAT 97 % (95-100); Arterial PCO2 iSTAT 45 MM HG (35-48); Arterial PO2 iSTAT 87 MM HG (80-95); Arterial Total CO2 iSTAT 32 MMO/L (23-27); Arterial pH iSTAT 7.437 (7.35-7.45)
[2021-12-17] MEDS: ATORVASTATIN 80 MG TABLET PO SCH (21:23)
[2021-12-17] MEDS: QUEtiapine 25 MG TABLET PO SCH (21:23)
[2021-12-18 04:56] LABS: Basophils % 0.2 % (0.0-0.8); Eosinophils # 0.1 10*3/uL (0.0-0.87); Eosinophils % 1.8 % (0.00-10.9); Hematocrit 31.9 VOL% (35.7-47.0); Hemoglobin 9.3 GM/DL (12.0-16.0); Immature Granulocytes % 0.2 %; Immature Granulocytes Absolute 0.01 #; Lymphocytes # 0.9 10*3/uL (1.4-4.0); Lymphocytes % 19.6 % (21.3-54.2); Mean Corpuscular HGB Conc 29.2 GM/DL (32-36); Mean Corpuscular Volume 85.8 FL (87-102); Monocytes # 0.6 10*3/uL (0.11-0.8); Neutrophils % 65.2 % (38.7-73.9); Platelet Count 405 T/CUMM (130-400); Red Blood Count 3.72 MC/CUMM (3.8-5.5); Red Cell Distribution Width 20.2 % (9.3-17.3); White Blood Count 4.4 T/CUMM (4-12)
[2021-12-18 05:20] LABS: Calcium 8.4 MG/DL (8.5-10.1); Osmolality,Calculated 292.7 MOS/KG (273-304); Potassium 3.8 MMOL/L (3.5-5.1)
[2021-12-18] MEDS ORDERED: POTASSIUM BICARB EFFERVESCENT 20 MEQ TAB.EFF PO ONE (05:28)
[2021-12-18] MEDS: MAGNESIUM SULF RIDER 2 GM/50 ML PREMIX IV PRN (06:07)
[2021-12-18] MEDS: ALBUTEROL/IPRATROPIUM 3 ML NEB RESP TX SCH ×2 (06:50→12:25)
[2021-12-18] MEDS: INSULIN LISPRO 100 UNIT/ML SUBCUT SCH ×4 (07:37→21:40)
[2021-12-18 08:48] LABS: Arterial Base Excess iSTAT 6 MMOL/L (-2.5-2.5); Arterial Bicarbonate iSTAT 30.8 MMOL/L (20-26); Arterial O2 Saturation iSTAT 95 % (95-100); Arterial PCO2 iSTAT 46 MM HG (35-48); Arterial PO2 iSTAT 76 MM HG (80-95); Arterial Total CO2 iSTAT 32 MMO/L (23-27)
[2021-12-18] MEDS: ASPIRIN CHEW 81 MG TABLET PO SCH (09:47)
[2021-12-18] MEDS: MULTIVITAMIN (CENTRUM) TABLET PO SCH (09:47)
[2021-12-18] MEDS: DOCUSATE SODIUM 100 MG CAPSULE PO SCH (09:47)
[2021-12-18] MEDS: FERROUS SULFATE 325 MG TABLET PO SCH ×2 (09:48→20:52)
[2021-12-18] MEDS: PANTOPRAZOLE 40 MG TABLET PO SCH (09:48)
[2021-12-18] MEDS: APIXABAN 2.5 MG TABLET PO SCH ×2 (09:48→20:52)
[2021-12-18] MEDS: risperiDONE 1 MG TABLET PO SCH (09:48)
[2021-12-18] MEDS: SERTRALINE 50 MG TABLET PO SCH (09:48)
[2021-12-18] MEDS: CHOLECALCIFEROL 1,000 UNIT TABLET PO SCH (09:48)
[2021-12-18] MEDS: METOPROLOL TARTRATE 50 MG TABLET PO SCH ×2 (09:48→20:52)
[2021-12-18] MEDS: ISOSORBIDE MONONITRATE 30 MG TABLET PO SCH (09:48)
[2021-12-18] MEDS: FUROSEMIDE 40 MG TABLET PO SCH (09:48)
[2021-12-18] MEDS: ATORVASTATIN 80 MG TABLET PO SCH (20:52)
[2021-12-19] MEDS: ALBUTEROL/IPRATROPIUM 3 ML NEB RESP TX SCH ×5 (00:03→19:10)
[2021-12-19 04:34] LABS: Eosinophils # 0.1 10*3/uL (0.0-0.87); Eosinophils % 1.2 % (0.00-10.9); Hematocrit 30.5 VOL% (35.7-47.0); Hemoglobin 8.9 GM/DL (12.0-16.0); Immature Granulocytes % 0.5 %; Immature Granulocytes Absolute 0.02 #; Lymphocytes # 0.6 10*3/uL (1.4-4.0); Lymphocytes % 13.6 % (21.3-54.2); Mean Corpuscular HGB Conc 29.2 GM/DL (32-36); Mean Corpuscular Volume 85.9 FL (87-102); Mean Platelet Volume 9.8 FL (9.6-12.0); Monocytes # 0.4 10*3/uL (0.11-0.8); Monocytes % 8.6 % (1.7-12.7); Neutrophils % 76.1 % (38.7-73.9); Platelet Count 437 T/CUMM (130-400); Red Blood Count 3.55 MC/CUMM (3.8-5.5); White Blood Count 4.3 T/CUMM (4-12)
[2021-12-19 04:52] LABS: Calcium 8.3 MG/DL (8.5-10.1); Osmolality,Calculated 293.6 MOS/KG (273-304); Potassium 3.4 MMOL/L (3.5-5.1)
[2021-12-19] MEDS: METOPROLOL TARTRATE 50 MG TABLET PO SCH ×2 (08:46→21:03)
[2021-12-19] MEDS: POTASSIUM CHLORIDE 20 MEQ TABLET PO PRN ×3 (08:46→16:19)
[2021-12-19] MEDS: MULTIVITAMIN (CENTRUM) TABLET PO SCH (08:46)
[2021-12-19] MEDS: PANTOPRAZOLE 40 MG TABLET PO SCH (08:47)
[2021-12-19] MEDS: DOCUSATE SODIUM 100 MG CAPSULE PO SCH (08:47)
[2021-12-19] MEDS: CHOLECALCIFEROL 1,000 UNIT TABLET PO SCH (08:47)
[2021-12-19] MEDS: SERTRALINE 50 MG TABLET PO SCH (08:47)
[2021-12-19] MEDS: ISOSORBIDE MONONITRATE 30 MG TABLET PO SCH (08:47)
[2021-12-19] MEDS: FERROUS SULFATE 325 MG TABLET PO SCH ×2 (08:47→21:03)
[2021-12-19] MEDS: ASPIRIN CHEW 81 MG TABLET PO SCH (08:47)
[2021-12-19] MEDS: risperiDONE 1 MG TABLET PO SCH (08:47)
[2021-12-19] MEDS: FUROSEMIDE 40 MG TABLET PO SCH (08:47)
[2021-12-19] MEDS: APIXABAN 2.5 MG TABLET PO SCH ×2 (08:47→21:03)
[2021-12-19] MEDS ORDERED: FUROSEMIDE 40 MG/4 ML VIAL IV ONE (08:50)
[2021-12-19] MEDS: INSULIN LISPRO 100 UNIT/ML SUBCUT SCH ×4 (09:14→21:03)
[2021-12-19 09:59] LABS: Bilirubin,Urine Negative (Negative); Blood, Urine Small mg/dL (Negative); Glucose,Urine (UA) Negative (Negative); Ketones,Urine Negative (Negative); Mucus,Urine Occasional /LPF (Occasional); Nitrite,Urine Negative (Negative); Protein,Urine 30 mg/dL (Negative); RBC,Urine 37 /HPF (0-4); Urine Appearance CLOUDY (Clear); Urine Color Yellow (Yellow); Urine Specific Gravity 1.015 (1.001-1.035); Urine Urobilinogen < 2.0 eU/dL (<2.0)
[2021-12-19] MEDS ORDERED: METOPROLOL TARTRATE 5 MG/5 ML VIAL IV ONE (10:04)
[2021-12-19] MEDS: cefTRIAXone 1,000 MG in SODIUM CHLORIDE 0.9% 100 ML IV SCH (10:32)
[2021-12-19] MEDS: ATORVASTATIN 80 MG TABLET PO SCH (21:03)
[2021-12-20] MEDS: ALBUTEROL/IPRATROPIUM 3 ML NEB RESP TX SCH ×4 (00:03→20:00)
[2021-12-20 05:41] LABS: Basophils % 0.2 % (0.0-0.8); Eosinophils # 0.1 10*3/uL (0.0-0.87); Eosinophils % 2.1 % (0.00-10.9); Hemoglobin 9.7 GM/DL (12.0-16.0); Immature Granulocytes % 0.2 %; Immature Granulocytes Absolute 0.01 #; Lymphocytes # 0.8 10*3/uL (1.4-4.0); Lymphocytes % 14.9 % (21.3-54.2); Mean Corpuscular HGB Conc 29.4 GM/DL (32-36); Mean Corpuscular Volume 86.4 FL (87-102); Mean Platelet Volume 10.4 FL (9.6-12.0); Monocytes # 0.5 10*3/uL (0.11-0.8); Monocytes % 9.5 % (1.7-12.7); Neutrophils % 73.1 % (38.7-73.9); Platelet Count 450 T/CUMM (130-400); Red Blood Count 3.82 MC/CUMM (3.8-5.5); Red Cell Distribution Width 19.9 % (9.3-17.3); White Blood Count 5.3 T/CUMM (4-12)
[2021-12-20 05:58] LABS: Calcium 8.5 MG/DL (8.5-10.1); Osmolality,Calculated 295.4 MOS/KG (273-304); Potassium 3.5 MMOL/L (3.5-5.1)
[2021-12-20] MEDS: INSULIN LISPRO 100 UNIT/ML SUBCUT SCH ×4 (08:09→22:08)
[2021-12-20] MEDS: ASPIRIN CHEW 81 MG TABLET PO SCH (09:09)
[2021-12-20] MEDS: PANTOPRAZOLE 40 MG TABLET PO SCH (09:10)
[2021-12-20] MEDS: DOCUSATE SODIUM 100 MG CAPSULE PO SCH (09:10)
[2021-12-20] MEDS: risperiDONE 1 MG TABLET PO SCH (09:10)
[2021-12-20] MEDS: FERROUS SULFATE 325 MG TABLET PO SCH ×2 (09:10→22:07)
[2021-12-20] MEDS: ISOSORBIDE MONONITRATE 30 MG TABLET PO SCH (09:10)
[2021-12-20] MEDS: MULTIVITAMIN (CENTRUM) TABLET PO SCH (09:10)
[2021-12-20] MEDS: SERTRALINE 50 MG TABLET PO SCH (09:10)
[2021-12-20] MEDS: CHOLECALCIFEROL 1,000 UNIT TABLET PO SCH (09:10)
[2021-12-20] MEDS: APIXABAN 2.5 MG TABLET PO SCH ×2 (09:10→22:08)
[2021-12-20] MEDS: METOPROLOL TARTRATE 50 MG TABLET PO SCH ×3 (09:11→22:08)
[2021-12-20] MEDS: cefTRIAXone 1,000 MG in SODIUM CHLORIDE 0.9% 100 ML IV SCH (09:15)
[2021-12-20] MEDS: POTASSIUM CHLORIDE 20 MEQ TABLET PO PRN ×2 (12:14→16:55)
[2021-12-20] MEDS: ATORVASTATIN 80 MG TABLET PO SCH (22:07)
[2021-12-21] MEDS: ALBUTEROL/IPRATROPIUM 3 ML NEB RESP TX SCH ×4 (01:09→19:50)
[2021-12-21] MEDS: METOPROLOL TARTRATE 50 MG TABLET PO SCH ×5 (03:56→21:23)
[2021-12-21 05:46] LABS: Eosinophils # 0.1 10*3/uL (0.0-0.87); Eosinophils % 2.1 % (0.00-10.9); Hematocrit 29.1 VOL% (35.7-47.0); Hemoglobin 8.5 GM/DL (12.0-16.0); Immature Granulocytes % 0.5 %; Immature Granulocytes Absolute 0.02 #; Lymphocytes # 0.7 10*3/uL (1.4-4.0); Lymphocytes % 15.3 % (21.3-54.2); Mean Corpuscular HGB Conc 29.2 GM/DL (32-36); Mean Corpuscular Volume 86.6 FL (87-102); Mean Platelet Volume 10.4 FL (9.6-12.0); Monocytes # 0.4 10*3/uL (0.11-0.8); Monocytes % 8.2 % (1.7-12.7); Neutrophils % 73.9 % (38.7-73.9); Platelet Count 401 T/CUMM (130-400); Red Blood Count 3.36 MC/CUMM (3.8-5.5); Red Cell Distribution Width 19.9 % (9.3-17.3); White Blood Count 4.3 T/CUMM (4-12)
[2021-12-21 06:05] LABS: Albumin 2.7 G/DL (3.4-5.0); Bilirubin,Total 0.6 MG/DL (0.20-1.00); Calcium 8.6 MG/DL (8.5-10.1); Osmolality,Calculated 298.3 MOS/KG (273-304); Potassium 3.7 MMOL/L (3.5-5.1); Total Protein 5.9 G/DL (6.4-8.2)
[2021-12-21] MEDS: INSULIN LISPRO 100 UNIT/ML SUBCUT SCH ×4 (07:28→21:22)
[2021-12-21] MEDS: risperiDONE 1 MG TABLET PO SCH (09:15)
[2021-12-21] MEDS: MULTIVITAMIN (CENTRUM) TABLET PO SCH ×2 (09:15→09:29)
[2021-12-21] MEDS: FERROUS SULFATE 325 MG TABLET PO SCH ×3 (09:15→20:30)
[2021-12-21] MEDS: ISOSORBIDE MONONITRATE 30 MG TABLET PO SCH (09:15)
[2021-12-21] MEDS: ASPIRIN CHEW 81 MG TABLET PO SCH ×2 (09:15→09:29)
[2021-12-21] MEDS: DOCUSATE SODIUM 100 MG CAPSULE PO SCH ×2 (09:15→09:29)
[2021-12-21] MEDS: APIXABAN 2.5 MG TABLET PO SCH ×3 (09:16→21:22)
[2021-12-21] MEDS: CHOLECALCIFEROL 1,000 UNIT TABLET PO SCH (09:16)
[2021-12-21] MEDS: SERTRALINE 50 MG TABLET PO SCH (09:16)
[2021-12-21] MEDS: PANTOPRAZOLE 40 MG TABLET PO SCH (09:16)
[2021-12-21] MEDS: SODIUM CHLORIDE 0.45% 1,000 ML IV SCH (11:55)
[2021-12-21] MEDS: ATORVASTATIN 80 MG TABLET PO SCH (21:23)
[2021-12-22] MEDS: ALBUTEROL/IPRATROPIUM 3 ML NEB RESP TX SCH ×4 (00:38→19:04)
[2021-12-22] MEDS: SODIUM CHLORIDE 0.45% 1,000 ML IV SCH (02:17)
[2021-12-22] MEDS: METOPROLOL TARTRATE 50 MG TABLET PO SCH ×4 (03:46→20:34)
[2021-12-22 06:14] LABS: Eosinophils % 0.8 % (0.00-10.9); Hematocrit 30.1 VOL% (35.7-47.0); Hemoglobin 8.7 GM/DL (12.0-16.0); Immature Granulocytes % 0.6 %; Immature Granulocytes Absolute 0.03 #; Lymphocytes # 0.7 10*3/uL (1.4-4.0); Mean Corpuscular HGB Conc 28.9 GM/DL (32-36); Mean Corpuscular Volume 86.2 FL (87-102); Monocytes # 0.4 10*3/uL (0.11-0.8); Monocytes % 8.7 % (1.7-12.7); Neutrophils % 74.9 % (38.7-73.9); Platelet Count 393 T/CUMM (130-400); Red Blood Count 3.49 MC/CUMM (3.8-5.5); White Blood Count 4.7 T/CUMM (4-12)
[2021-12-22 06:22] LABS: Calcium 8.6 MG/DL (8.5-10.1); Osmolality,Calculated 294.4 MOS/KG (273-304); Potassium 3.5 MMOL/L (3.5-5.1)
[2021-12-22] MEDS: INSULIN LISPRO 100 UNIT/ML SUBCUT SCH ×4 (07:51→20:39)
[2021-12-22] MEDS: SERTRALINE 50 MG TABLET PO SCH (09:18)
[2021-12-22] MEDS: FERROUS SULFATE 325 MG TABLET PO SCH ×2 (09:18→20:34)
[2021-12-22] MEDS: ISOSORBIDE MONONITRATE 30 MG TABLET PO SCH (09:18)
[2021-12-22] MEDS: APIXABAN 2.5 MG TABLET PO SCH ×2 (09:18→20:34)
[2021-12-22] MEDS: MULTIVITAMIN (CENTRUM) TABLET PO SCH (09:18)
[2021-12-22] MEDS: PANTOPRAZOLE 40 MG TABLET PO SCH (09:18)
[2021-12-22] MEDS: risperiDONE 1 MG TABLET PO SCH (09:18)
[2021-12-22] MEDS: CHOLECALCIFEROL 1,000 UNIT TABLET PO SCH (09:18)
[2021-12-22] MEDS: ASPIRIN CHEW 81 MG TABLET PO SCH (09:18)
[2021-12-22] MEDS: DOCUSATE SODIUM 100 MG CAPSULE PO SCH (09:18)
[2021-12-22] MEDS: DEXTROSE 5% 1,000 ML IV SCH (12:28)
[2021-12-22] MEDS: POTASSIUM CHLORIDE 20 MEQ TABLET PO PRN ×2 (16:56→16:57)
[2021-12-22] MEDS: ATORVASTATIN 80 MG TABLET PO SCH (20:34)
[2021-12-23] MEDS: ALBUTEROL/IPRATROPIUM 3 ML NEB RESP TX SCH ×4 (00:13→19:50)
[2021-12-23] MEDS: METOPROLOL TARTRATE 50 MG TABLET PO SCH ×4 (03:28→20:40)
[2021-12-23 05:57] LABS: Basophils % 0.2 % (0.0-0.8); Eosinophils # 0.1 10*3/uL (0.0-0.87); Eosinophils % 0.9 % (0.00-10.9); Hematocrit 29.7 VOL% (35.7-47.0); Hemoglobin 8.5 GM/DL (12.0-16.0); Immature Granulocytes % 0.4 %; Immature Granulocytes Absolute 0.02 #; Lymphocytes # 0.8 10*3/uL (1.4-4.0); Lymphocytes % 14.1 % (21.3-54.2); Mean Corpuscular HGB Conc 28.6 GM/DL (32-36); Mean Corpuscular Volume 86.1 FL (87-102); Mean Platelet Volume 10.7 FL (9.6-12.0); Monocytes # 0.5 10*3/uL (0.11-0.8); Monocytes % 8.7 % (1.7-12.7); Neutrophils % 75.7 % (38.7-73.9); Platelet Count 311 T/CUMM (130-400); Red Blood Count 3.45 MC/CUMM (3.8-5.5); Red Cell Distribution Width 19.7 % (9.3-17.3); White Blood Count 5.5 T/CUMM (4-12)
[2021-12-23 06:02] LABS: Calcium 8.5 MG/DL (8.5-10.1); Osmolality,Calculated 292.6 MOS/KG (273-304); Potassium 3.6 MMOL/L (3.5-5.1)
[2021-12-23 06:25] LABS: Anisocytosis 1+; Platelet Estimate Normal
[2021-12-23] MEDS: INSULIN LISPRO 100 UNIT/ML SUBCUT SCH ×4 (07:24→20:00)
[2021-12-23] MEDS: DOCUSATE SODIUM 100 MG CAPSULE PO SCH (08:39)
[2021-12-23] MEDS: SERTRALINE 50 MG TABLET PO SCH (08:39)
[2021-12-23] MEDS: MULTIVITAMIN (CENTRUM) TABLET PO SCH (08:39)
[2021-12-23] MEDS: APIXABAN 2.5 MG TABLET PO SCH ×2 (08:39→20:40)
[2021-12-23] MEDS: ISOSORBIDE MONONITRATE 30 MG TABLET PO SCH (08:39)
[2021-12-23] MEDS: FERROUS SULFATE 325 MG TABLET PO SCH ×2 (08:39→20:40)
[2021-12-23] MEDS: PANTOPRAZOLE 40 MG TABLET PO SCH (08:39)
[2021-12-23] MEDS: ASPIRIN CHEW 81 MG TABLET PO SCH (08:39)
[2021-12-23] MEDS: risperiDONE 1 MG TABLET PO SCH (08:39)
[2021-12-23] MEDS: CHOLECALCIFEROL 1,000 UNIT TABLET PO SCH (08:40)
[2021-12-23] MEDS: DEXTROSE 5% 1,000 ML IV SCH (09:15)
[2021-12-23 11:21] LABS: % Iron Saturation 6.8 % (18-50)
[2021-12-23 11:29] LABS: Folate > 24.00 NG/ML (5.38-24.0); Vitamin B12 703 PG/ML (211-911)
[2021-12-23] MEDS ORDERED: FERRIC GLUCONATE COMPLEX 125 MG in SODIUM CHLORIDE 0.9% 100 ML IV ONE (14:12)
[2021-12-23] MEDS ORDERED: FERRIC GLUCONATE COMPLEX 125 MG in SODIUM CHLORIDE 0.9% 100 ML IV SCH (14:30)
[2021-12-23] MEDS: ACETAMINOPHEN 325 MG TABLET PO PRN (20:40)
[2021-12-23] MEDS: ATORVASTATIN 80 MG TABLET PO SCH (20:40)
[2021-12-24] MEDS: ALBUTEROL/IPRATROPIUM 3 ML NEB RESP TX SCH ×4 (00:35→19:32)
[2021-12-24] MEDS: METOPROLOL TARTRATE 50 MG TABLET PO SCH ×4 (02:17→21:50)
[2021-12-24 05:46] LABS: Calcium 8.7 MG/DL (8.5-10.1); Osmolality,Calculated 287.8 MOS/KG (273-304); Potassium 3.7 MMOL/L (3.5-5.1)
[2021-12-24 06:04] LABS: Basophils % 0.2 % (0.0-0.8); Eosinophils # 0.1 10*3/uL (0.0-0.87); Eosinophils % 1.9 % (0.00-10.9); Hematocrit 31.1 VOL% (35.7-47.0); Hemoglobin 9.1 GM/DL (12.0-16.0); Immature Granulocytes % 0.2 %; Immature Granulocytes Absolute 0.01 #; Lymphocytes # 0.8 10*3/uL (1.4-4.0); Lymphocytes % 16.9 % (21.3-54.2); Mean Corpuscular HGB Conc 29.3 GM/DL (32-36); Mean Platelet Volume 10.7 FL (9.6-12.0); Monocytes # 0.5 10*3/uL (0.11-0.8); Neutrophils % 69.8 % (38.7-73.9); Platelet Count 292 T/CUMM (130-400); Red Blood Count 3.66 MC/CUMM (3.8-5.5); Red Cell Distribution Width 19.8 % (9.3-17.3); White Blood Count 4.7 T/CUMM (4-12)
[2021-12-24] MEDS: MULTIVITAMIN (CENTRUM) TABLET PO SCH (09:29)
[2021-12-24] MEDS: DOCUSATE SODIUM 100 MG CAPSULE PO SCH (09:29)
[2021-12-24] MEDS: ASPIRIN CHEW 81 MG TABLET PO SCH (09:30)
[2021-12-24] MEDS: SERTRALINE 50 MG TABLET PO SCH (09:30)
[2021-12-24] MEDS: ISOSORBIDE MONONITRATE 30 MG TABLET PO SCH (09:30)
[2021-12-24] MEDS: risperiDONE 1 MG TABLET PO SCH (09:30)
[2021-12-24] MEDS: APIXABAN 2.5 MG TABLET PO SCH ×2 (09:30→21:50)
[2021-12-24] MEDS: FERROUS SULFATE 325 MG TABLET PO SCH ×2 (09:30→21:50)
[2021-12-24] MEDS: PANTOPRAZOLE 40 MG TABLET PO SCH (09:30)
[2021-12-24] MEDS: CHOLECALCIFEROL 1,000 UNIT TABLET PO SCH (09:30)
[2021-12-24] MEDS: DEXTROSE 5% 1,000 ML IV SCH (09:42)
[2021-12-24] MEDS: INSULIN LISPRO 100 UNIT/ML SUBCUT SCH ×4 (10:53→21:51)
[2021-12-24] MEDS: ATORVASTATIN 80 MG TABLET PO SCH (21:50)
[2021-12-25] MEDS: ALBUTEROL/IPRATROPIUM 3 ML NEB RESP TX SCH ×4 (03:45→19:05)
[2021-12-25] MEDS: DEXTROSE 5% 1,000 ML IV SCH (04:59)
[2021-12-25] MEDS: METOPROLOL TARTRATE 50 MG TABLET PO SCH ×4 (04:59→21:57)
[2021-12-25 05:02] LABS: Eosinophils % 0.4 % (0.00-10.9); Hematocrit 29.5 VOL% (35.7-47.0); Hemoglobin 8.7 GM/DL (12.0-16.0); Immature Granulocytes % 0.5 %; Immature Granulocytes Absolute 0.03 #; Lymphocytes # 0.5 10*3/uL (1.4-4.0); Lymphocytes % 8.8 % (21.3-54.2); Mean Corpuscular HGB Conc 29.5 GM/DL (32-36); Mean Platelet Volume 10.4 FL (9.6-12.0); Monocytes # 0.2 10*3/uL (0.11-0.8); Monocytes % 4.1 % (1.7-12.7); Neutrophils % 86.2 % (38.7-73.9); Platelet Count 264 T/CUMM (130-400); Red Blood Count 3.47 MC/CUMM (3.8-5.5); Red Cell Distribution Width 19.5 % (9.3-17.3); White Blood Count 5.6 T/CUMM (4-12)
[2021-12-25 05:42] LABS: Calcium 8.7 MG/DL (8.5-10.1); Osmolality,Calculated 288.8 MOS/KG (273-304); Potassium 3.5 MMOL/L (3.5-5.1)
[2021-12-25] MEDS: INSULIN LISPRO 100 UNIT/ML SUBCUT SCH ×4 (09:40→21:58)
[2021-12-25] MEDS: MULTIVITAMIN (CENTRUM) TABLET PO SCH (11:00)
[2021-12-25] MEDS: ASPIRIN CHEW 81 MG TABLET PO SCH (11:01)
[2021-12-25] MEDS: FERROUS SULFATE 325 MG TABLET PO SCH ×2 (11:01→21:57)
[2021-12-25] MEDS: PANTOPRAZOLE 40 MG TABLET PO SCH (11:01)
[2021-12-25] MEDS: APIXABAN 2.5 MG TABLET PO SCH ×2 (11:01→21:57)
[2021-12-25] MEDS: DOCUSATE SODIUM 100 MG CAPSULE PO SCH (11:01)
[2021-12-25] MEDS: CHOLECALCIFEROL 1,000 UNIT TABLET PO SCH (11:01)
[2021-12-25] MEDS: ISOSORBIDE MONONITRATE 30 MG TABLET PO SCH (11:01)
[2021-12-25] MEDS ORDERED: SERTRALINE 50 MG TABLET PO SCH (21:00)
[2021-12-25] MEDS: ATORVASTATIN 80 MG TABLET PO SCH (21:57)
[2021-12-25] MEDS: risperiDONE 1 MG TABLET PO SCH (21:57)
[2021-12-26] MEDS: ALBUTEROL/IPRATROPIUM 3 ML NEB RESP TX SCH ×4 (02:30→19:58)
[2021-12-26] MEDS: METOPROLOL TARTRATE 50 MG TABLET PO SCH ×4 (04:07→20:24)
[2021-12-26 05:54] LABS: Calcium 8.8 MG/DL (8.5-10.1); Osmolality,Calculated 289.6 MOS/KG (273-304); Potassium 3.2 MMOL/L (3.5-5.1)
[2021-12-26 05:56] LABS: Basophils % 0.4 % (0.0-0.8); Eosinophils # 0.1 10*3/uL (0.0-0.87); Eosinophils % 3.1 % (0.00-10.9); Hemoglobin 8.9 GM/DL (12.0-16.0); Immature Granulocytes % 0.4 %; Immature Granulocytes Absolute 0.01 #; Lymphocytes # 0.8 10*3/uL (1.4-4.0); Mean Corpuscular Volume 86.4 FL (87-102); Mean Platelet Volume 10.4 FL (9.6-12.0); Monocytes # 0.3 10*3/uL (0.11-0.8); Monocytes % 9.8 % (1.7-12.7); Neutrophils % 54.3 % (38.7-73.9); Platelet Count 241 T/CUMM (130-400); Red Blood Count 3.68 MC/CUMM (3.8-5.5); Red Cell Distribution Width 19.9 % (9.3-17.3); White Blood Count 2.6 T/CUMM (4-12)
[2021-12-26 05:57] LABS: Hematocrit 31.8 VOL% (35.7-47.0)
[2021-12-26] MEDS: ASPIRIN CHEW 81 MG TABLET PO SCH (09:48)
[2021-12-26] MEDS: FERROUS SULFATE 325 MG TABLET PO SCH ×2 (09:48→20:23)
[2021-12-26] MEDS: PANTOPRAZOLE 40 MG TABLET PO SCH (09:48)
[2021-12-26] MEDS: ISOSORBIDE MONONITRATE 30 MG TABLET PO SCH (09:48)
[2021-12-26] MEDS: DOCUSATE SODIUM 100 MG CAPSULE PO SCH (09:48)
[2021-12-26] MEDS: APIXABAN 2.5 MG TABLET PO SCH ×2 (09:48→20:22)
[2021-12-26] MEDS: CHOLECALCIFEROL 1,000 UNIT TABLET PO SCH (09:48)
[2021-12-26] MEDS: MULTIVITAMIN (CENTRUM) TABLET PO SCH (09:48)
[2021-12-26] MEDS: INSULIN LISPRO 100 UNIT/ML SUBCUT SCH ×4 (09:56→20:23)
[2021-12-26] MEDS: ATORVASTATIN 80 MG TABLET PO SCH (20:23)
[2021-12-26] MEDS: risperiDONE 1 MG TABLET PO SCH (20:24)
[2021-12-27] MEDS: ALBUTEROL/IPRATROPIUM 3 ML NEB RESP TX SCH ×4 (01:40→19:10)
[2021-12-27] MEDS: METOPROLOL TARTRATE 50 MG TABLET PO SCH ×4 (03:59→21:21)
[2021-12-27 06:56] LABS: Osmolality,Calculated 295.4 MOS/KG (273-304); Potassium 3.7 MMOL/L (3.5-5.1)
[2021-12-27 07:02] LABS: Basophils % 0.1 % (0.0-0.8); Hemoglobin 9.3 GM/DL (12.0-16.0); Immature Granulocytes % 0.9 %; Immature Granulocytes Absolute 0.07 #; Lymphocytes # 0.4 10*3/uL (1.4-4.0); Lymphocytes % 5.3 % (21.3-54.2); Mean Corpuscular HGB Conc 28.2 GM/DL (32-36); Mean Corpuscular Volume 87.1 FL (87-102); Mean Platelet Volume 10.6 FL (9.6-12.0); Monocytes # 0.3 10*3/uL (0.11-0.8); Monocytes % 3.7 % (1.7-12.7); Platelet Count 236 T/CUMM (130-400); Red Blood Count 3.79 MC/CUMM (3.8-5.5); Red Cell Distribution Width 19.8 % (9.3-17.3); White Blood Count 7.5 T/CUMM (4-12)
[2021-12-27] MEDS: ISOSORBIDE MONONITRATE 30 MG TABLET PO SCH (09:16)
[2021-12-27] MEDS: CHOLECALCIFEROL 1,000 UNIT TABLET PO SCH (09:16)
[2021-12-27] MEDS: DOCUSATE SODIUM 100 MG CAPSULE PO SCH (09:16)
[2021-12-27] MEDS: ASPIRIN CHEW 81 MG TABLET PO SCH (09:16)
[2021-12-27] MEDS: FERROUS SULFATE 325 MG TABLET PO SCH ×2 (09:16→21:17)
[2021-12-27] MEDS: MULTIVITAMIN (CENTRUM) TABLET PO SCH (09:16)
[2021-12-27] MEDS: APIXABAN 2.5 MG TABLET PO SCH ×2 (09:16→21:17)
[2021-12-27] MEDS: PANTOPRAZOLE 40 MG TABLET PO SCH (09:17)
[2021-12-27] MEDS: INSULIN LISPRO 100 UNIT/ML SUBCUT SCH ×4 (10:25→21:20)
[2021-12-27] MEDS: DEXTROSE 5% 1,000 ML IV SCH (13:58)
[2021-12-27] MEDS: risperiDONE 1 MG TABLET PO SCH (21:21)
[2021-12-27] MEDS: ATORVASTATIN 80 MG TABLET PO SCH (21:21)
[2021-12-28] MEDS: ALBUTEROL/IPRATROPIUM 3 ML NEB RESP TX SCH ×4 (00:20→21:01)
[2021-12-28] MEDS: METOPROLOL TARTRATE 50 MG TABLET PO SCH ×4 (02:55→21:41)
[2021-12-28 05:34] LABS: Calcium 8.9 MG/DL (8.5-10.1); Osmolality,Calculated 294.4 MOS/KG (273-304); Potassium 3.3 MMOL/L (3.5-5.1)
[2021-12-28 06:18] LABS: Basophils % 0.2 % (0.0-0.8); Eosinophils # 0.1 10*3/uL (0.0-0.87); Eosinophils % 2.5 % (0.00-10.9); Immature Granulocytes % 0.2 %; Immature Granulocytes Absolute 0.01 #; Lymphocytes % 21.2 % (21.3-54.2); Mean Corpuscular Volume 86.3 FL (87-102); Mean Platelet Volume 10.2 FL (9.6-12.0); Monocytes # 0.3 10*3/uL (0.11-0.8); Monocytes % 7.4 % (1.7-12.7); Neutrophils % 68.5 % (38.7-73.9); Platelet Count 205 T/CUMM (130-400); Red Cell Distribution Width 20.2 % (9.3-17.3); White Blood Count 4.5 T/CUMM (4-12)
[2021-12-28 06:22] LABS: Hematocrit 34.5 VOL% (35.7-47.0)
[2021-12-28] MEDS: INSULIN LISPRO 100 UNIT/ML SUBCUT SCH ×4 (08:27→21:42)
[2021-12-28] MEDS: DOCUSATE SODIUM 100 MG CAPSULE PO SCH (09:59)
[2021-12-28] MEDS: MULTIVITAMIN (CENTRUM) TABLET PO SCH (09:59)
[2021-12-28] MEDS: ISOSORBIDE MONONITRATE 30 MG TABLET PO SCH (09:59)
[2021-12-28] MEDS: APIXABAN 2.5 MG TABLET PO SCH ×2 (09:59→21:41)
[2021-12-28] MEDS: ASPIRIN CHEW 81 MG TABLET PO SCH (09:59)
[2021-12-28] MEDS: FERROUS SULFATE 325 MG TABLET PO SCH ×2 (09:59→21:41)
[2021-12-28] MEDS: PANTOPRAZOLE 40 MG TABLET PO SCH (10:00)
[2021-12-28] MEDS: CHOLECALCIFEROL 1,000 UNIT TABLET PO SCH (10:00)
[2021-12-28] MEDS: DEXTROSE 5% 1,000 ML IV SCH (11:04)
[2021-12-28] MEDS: ATORVASTATIN 80 MG TABLET PO SCH (21:40)
[2021-12-28] MEDS: risperiDONE 1 MG TABLET PO SCH (21:41)
[2021-12-28] MEDS: POTASSIUM CHLORIDE INJ 10 MEQ in DEXTROSE 5% 1,000 ML IV SCH (23:22)
[2021-12-29] MEDS: METOPROLOL TARTRATE 50 MG TABLET PO SCH ×4 (02:10→21:14)
[2021-12-29] MEDS: ALBUTEROL/IPRATROPIUM 3 ML NEB RESP TX SCH ×4 (02:37→20:55)
[2021-12-29 06:01] LABS: Calcium 8.4 MG/DL (8.5-10.1); Osmolality,Calculated 292.4 MOS/KG (273-304); Potassium 3.2 MMOL/L (3.5-5.1)
[2021-12-29 06:13] LABS: Basophils % 0.4 % (0.0-0.8); Eosinophils # 0.1 10*3/uL (0.0-0.87); Eosinophils % 3.3 % (0.00-10.9); Hematocrit 31.3 VOL% (35.7-47.0); Hemoglobin 8.7 GM/DL (12.0-16.0); Immature Granulocytes % 0.4 %; Immature Granulocytes Absolute 0.01 #; Lymphocytes # 0.7 10*3/uL (1.4-4.0); Lymphocytes % 24.4 % (21.3-54.2); Mean Corpuscular HGB Conc 27.8 GM/DL (32-36); Mean Corpuscular Volume 88.2 FL (87-102); Mean Platelet Volume 10.3 FL (9.6-12.0); Monocytes # 0.3 10*3/uL (0.11-0.8); Monocytes % 9.2 % (1.7-12.7); Neutrophils % 62.3 % (38.7-73.9); Platelet Count 163 T/CUMM (130-400); Red Blood Count 3.55 MC/CUMM (3.8-5.5); Red Cell Distribution Width 19.9 % (9.3-17.3); White Blood Count 2.7 T/CUMM (4-12)
[2021-12-29] MEDS: ISOSORBIDE MONONITRATE 30 MG TABLET PO SCH (10:55)
[2021-12-29] MEDS: CHOLECALCIFEROL 1,000 UNIT TABLET PO SCH (10:55)
[2021-12-29] MEDS: MULTIVITAMIN (CENTRUM) TABLET PO SCH (10:55)
[2021-12-29] MEDS: PANTOPRAZOLE 40 MG TABLET PO SCH (10:55)
[2021-12-29] MEDS: ASPIRIN CHEW 81 MG TABLET PO SCH (10:55)
[2021-12-29] MEDS: DOCUSATE SODIUM 100 MG CAPSULE PO SCH (10:55)
[2021-12-29] MEDS: FERROUS SULFATE 325 MG TABLET PO SCH ×2 (10:56→21:14)
[2021-12-29] MEDS: APIXABAN 2.5 MG TABLET PO SCH ×2 (10:56→21:14)
[2021-12-29] MEDS: INSULIN LISPRO 100 UNIT/ML SUBCUT SCH ×4 (10:57→21:14)
[2021-12-29] MEDS ORDERED: POTASSIUM CHLORIDE 20 MEQ TABLET PO ONE (11:14)
[2021-12-29] MEDS: POTASSIUM BICARB EFFERVESCENT 20 MEQ TAB.EFF PER TUBE PRN ×3 (11:50→18:20)
[2021-12-29 16:10] LABS: % Iron Saturation 11.7 % (18-50)
[2021-12-29 16:15] LABS: Folate > 24.00 NG/ML (5.38-24.0); Vitamin B12 712 PG/ML (211-911)
[2021-12-29] MEDS: POTASSIUM CHLORIDE INJ 10 MEQ in DEXTROSE 5% 1,000 ML IV SCH (18:30)
[2021-12-29] MEDS: risperiDONE 1 MG TABLET PO SCH (21:14)
[2021-12-29] MEDS: ATORVASTATIN 80 MG TABLET PO SCH (21:14)
[2021-12-30] MEDS: ALBUTEROL/IPRATROPIUM 3 ML NEB RESP TX SCH ×4 (01:51→19:11)
[2021-12-30] MEDS: METOPROLOL TARTRATE 50 MG TABLET PO SCH ×4 (03:16→20:48)
[2021-12-30 05:45] LABS: Calcium 8.7 MG/DL (8.5-10.1); Osmolality,Calculated 287.7 MOS/KG (273-304); Potassium 3.9 MMOL/L (3.5-5.1)
[2021-12-30 06:08] LABS: Basophils % 0.3 % (0.0-0.8); Eosinophils # 0.1 10*3/uL (0.0-0.87); Eosinophils % 1.9 % (0.00-10.9); Hematocrit 32.9 VOL% (35.7-47.0); Hemoglobin 9.5 GM/DL (12.0-16.0); Immature Granulocytes % 0.3 %; Immature Granulocytes Absolute 0.01 #; Lymphocytes % 31.9 % (21.3-54.2); Mean Corpuscular HGB Conc 28.9 GM/DL (32-36); Mean Corpuscular Volume 86.6 FL (87-102); Monocytes # 0.3 10*3/uL (0.11-0.8); Neutrophils % 56.6 % (38.7-73.9); Platelet Count 154 T/CUMM (130-400); Red Cell Distribution Width 20.3 % (9.3-17.3); White Blood Count 3.2 T/CUMM (4-12)
[2021-12-30] MEDS: INSULIN LISPRO 100 UNIT/ML SUBCUT SCH ×4 (08:21→20:48)
[2021-12-30] MEDS: MAGNESIUM SULF RIDER 2 GM/50 ML PREMIX IV PRN (09:19)
[2021-12-30] MEDS: ASPIRIN CHEW 81 MG TABLET PO SCH (09:20)
[2021-12-30] MEDS: MULTIVITAMIN (CENTRUM) TABLET PO SCH (09:20)
[2021-12-30] MEDS: PANTOPRAZOLE 40 MG TABLET PO SCH (09:20)
[2021-12-30] MEDS: DOCUSATE SODIUM 100 MG CAPSULE PO SCH (09:20)
[2021-12-30] MEDS: CHOLECALCIFEROL 1,000 UNIT TABLET PO SCH (09:20)
[2021-12-30] MEDS: ISOSORBIDE MONONITRATE 30 MG TABLET PO SCH (09:20)
[2021-12-30] MEDS: APIXABAN 2.5 MG TABLET PO SCH ×2 (09:20→20:48)
[2021-12-30] MEDS: FERROUS SULFATE 325 MG TABLET PO SCH ×2 (09:20→20:48)
[2021-12-30] MEDS ORDERED: MAGNESIUM SULF RIDER 2 GM/50 ML PREMIX IV ONE (10:42)
[2021-12-30] MEDS: ATORVASTATIN 80 MG TABLET PO SCH (20:48)
[2021-12-30] MEDS: risperiDONE 1 MG TABLET PO SCH (20:48)
[2021-12-31] MEDS: hydrALAZINE 20 MG/1 ML VIAL IV PRN (00:39)
[2021-12-31] MEDS: ALBUTEROL/IPRATROPIUM 3 ML NEB RESP TX SCH ×4 (00:54→19:05)
[2021-12-31] MEDS ORDERED: METOPROLOL TARTRATE 5 MG/5 ML VIAL IV ONE (00:58)
[2021-12-31] MEDS ORDERED: FUROSEMIDE 40 MG/4 ML VIAL IV ONE (01:00)
[2021-12-31] MEDS ORDERED: METOPROLOL TARTRATE 5 MG/5 ML VIAL IV STA (01:20)
[2021-12-31] MEDS: METOPROLOL TARTRATE 50 MG TABLET PO SCH ×3 (02:13→15:40)
[2021-12-31] MEDS: POTASSIUM CHLORIDE 20 MEQ TABLET PO PRN (02:13)
[2021-12-31] MEDS: POTASSIUM CHLORIDE RIDER 10 MEQ/100 ML PREMIX IV SCH (02:37)
[2021-12-31 06:03] LABS: Calcium 9.2 MG/DL (8.5-10.1); Osmolality,Calculated 289.7 MOS/KG (273-304); Potassium 3.9 MMOL/L (3.5-5.1)
[2021-12-31 06:08] LABS: Basophils % 0.2 % (0.0-0.8); Eosinophils % 0.2 % (0.00-10.9); Hematocrit 34.1 VOL% (35.7-47.0); Immature Granulocytes % 1.3 %; Immature Granulocytes Absolute 0.07 #; Lymphocytes # 0.5 10*3/uL (1.4-4.0); Lymphocytes % 8.9 % (21.3-54.2); Mean Corpuscular Volume 85.7 FL (87-102); Mean Platelet Volume 10.7 FL (9.6-12.0); Monocytes # 0.2 10*3/uL (0.11-0.8); Monocytes % 3.6 % (1.7-12.7); Neutrophils % 85.8 % (38.7-73.9); Platelet Count 160 T/CUMM (130-400); Red Blood Count 3.98 MC/CUMM (3.8-5.5); Red Cell Distribution Width 20.5 % (9.3-17.3); White Blood Count 5.5 T/CUMM (4-12)
[2021-12-31 06:15] LABS: Hemoglobin 9.9 GM/DL (12.0-16.0)
[2021-12-31] MEDS: INSULIN LISPRO 100 UNIT/ML SUBCUT SCH ×4 (08:18→20:05)
[2021-12-31] MEDS: APIXABAN 2.5 MG TABLET PO SCH ×2 (09:49→21:42)
[2021-12-31] MEDS: FERROUS SULFATE 325 MG TABLET PO SCH ×2 (09:49→21:42)
[2021-12-31] MEDS: CHOLECALCIFEROL 1,000 UNIT TABLET PO SCH (09:49)
[2021-12-31] MEDS: ISOSORBIDE MONONITRATE 30 MG TABLET PO SCH (09:49)
[2021-12-31] MEDS: PANTOPRAZOLE 40 MG TABLET PO SCH (09:49)
[2021-12-31] MEDS: ASPIRIN CHEW 81 MG TABLET PO SCH (09:49)
[2021-12-31] MEDS: MULTIVITAMIN (CENTRUM) TABLET PO SCH (09:49)
[2021-12-31] MEDS: DOCUSATE SODIUM 100 MG CAPSULE PO SCH (09:50)
[2021-12-31] MEDS: METOPROLOL TARTRATE 5 MG/5 ML VIAL IV SCH (18:08)
[2021-12-31] MEDS: ATORVASTATIN 80 MG TABLET PO SCH (21:42)
[2021-12-31] MEDS: risperiDONE 1 MG TABLET PO SCH (21:42)
[2022-01-01] MEDS: ALBUTEROL/IPRATROPIUM 3 ML NEB RESP TX SCH ×4 (00:05→19:32)
[2022-01-01] MEDS: METOPROLOL TARTRATE 5 MG/5 ML VIAL IV SCH ×4 (00:44→17:17)
[2022-01-01 06:13] LABS: Albumin 2.8 G/DL (3.4-5.0); Bilirubin,Total 0.8 MG/DL (0.20-1.00); Calcium 8.8 MG/DL (8.5-10.1); Osmolality,Calculated 296.1 MOS/KG (273-304); Potassium 3.5 MMOL/L (3.5-5.1); Total Protein 5.7 G/DL (6.4-8.2)
[2022-01-01 06:16] LABS: Eosinophils # 0.1 10*3/uL (0.0-0.87); Eosinophils % 3.2 % (0.00-10.9); Hematocrit 33.9 VOL% (35.7-47.0); Hemoglobin 9.6 GM/DL (12.0-16.0); Immature Granulocytes % 0.7 %; Immature Granulocytes Absolute 0.02 #; Lymphocytes # 0.7 10*3/uL (1.4-4.0); Mean Corpuscular HGB Conc 28.3 GM/DL (32-36); Mean Platelet Volume 10.3 FL (9.6-12.0); Monocytes # 0.3 10*3/uL (0.11-0.8); Monocytes % 8.8 % (1.7-12.7); Neutrophils % 61.3 % (38.7-73.9); Platelet Count 141 T/CUMM (130-400); Red Blood Count 3.94 MC/CUMM (3.8-5.5); Red Cell Distribution Width 21.2 % (9.3-17.3); White Blood Count 2.9 T/CUMM (4-12)
[2022-01-01] MEDS: INSULIN LISPRO 100 UNIT/ML SUBCUT SCH ×4 (08:17→19:59)
[2022-01-01] MEDS: DOCUSATE SODIUM 100 MG CAPSULE PO SCH (09:15)
[2022-01-01] MEDS: MULTIVITAMIN (CENTRUM) TABLET PO SCH (09:15)
[2022-01-01] MEDS: PANTOPRAZOLE 40 MG TABLET PO SCH (09:15)
[2022-01-01] MEDS: APIXABAN 2.5 MG TABLET PO SCH ×2 (09:15→21:12)
[2022-01-01] MEDS: FERROUS SULFATE 325 MG TABLET PO SCH ×2 (09:15→21:12)
[2022-01-01] MEDS: FUROSEMIDE 20 MG/2 ML VIAL IV SCH (09:16)
[2022-01-01] MEDS: ASPIRIN CHEW 81 MG TABLET PO SCH (09:16)
[2022-01-01] MEDS: CHOLECALCIFEROL 1,000 UNIT TABLET PO SCH (09:16)
[2022-01-01] MEDS: ISOSORBIDE MONONITRATE 30 MG TABLET PO SCH (09:16)
[2022-01-01] MEDS: risperiDONE 1 MG TABLET PO SCH (21:12)
[2022-01-01] MEDS: ATORVASTATIN 80 MG TABLET PO SCH (21:12)
[2022-01-02] MEDS: METOPROLOL TARTRATE 5 MG/5 ML VIAL IV SCH ×4 (00:35→18:37)
[2022-01-02] MEDS: ALBUTEROL/IPRATROPIUM 3 ML NEB RESP TX SCH ×4 (01:00→21:34)
[2022-01-02 05:14] LABS: Calcium 8.6 MG/DL (8.5-10.1); Osmolality,Calculated 297.1 MOS/KG (273-304); Potassium 3.3 MMOL/L (3.5-5.1)
[2022-01-02 05:31] LABS: Basophils % 0.4 % (0.0-0.8); Eosinophils # 0.1 10*3/uL (0.0-0.87); Eosinophils % 3.8 % (0.00-10.9); Hematocrit 32.1 VOL% (35.7-47.0); Hemoglobin 9.2 GM/DL (12.0-16.0); Immature Granulocytes % 0.4 %; Immature Granulocytes Absolute 0.01 #; Lymphocytes # 0.7 10*3/uL (1.4-4.0); Lymphocytes % 28.1 % (21.3-54.2); Mean Corpuscular HGB Conc 28.7 GM/DL (32-36); Mean Corpuscular Volume 87.7 FL (87-102); Mean Platelet Volume 9.8 FL (9.6-12.0); Monocytes # 0.3 10*3/uL (0.11-0.8); Monocytes % 13.2 % (1.7-12.7); Neutrophils % 54.1 % (38.7-73.9); Platelet Count 128 T/CUMM (130-400); Red Blood Count 3.66 MC/CUMM (3.8-5.5); Red Cell Distribution Width 20.9 % (9.3-17.3); White Blood Count 2.4 T/CUMM (4-12)
[2022-01-02] MEDS: INSULIN LISPRO 100 UNIT/ML SUBCUT SCH ×4 (09:04→20:31)
[2022-01-02] MEDS: MULTIVITAMIN (CENTRUM) TABLET PO SCH (09:52)
[2022-01-02] MEDS: FUROSEMIDE 20 MG/2 ML VIAL IV SCH (09:52)
[2022-01-02] MEDS: PANTOPRAZOLE 40 MG TABLET PO SCH (09:52)
[2022-01-02] MEDS: ISOSORBIDE MONONITRATE 30 MG TABLET PO SCH (09:52)
[2022-01-02] MEDS: APIXABAN 2.5 MG TABLET PO SCH ×2 (09:52→20:51)
[2022-01-02] MEDS: ASPIRIN CHEW 81 MG TABLET PO SCH (09:52)
[2022-01-02] MEDS: FERROUS SULFATE 325 MG TABLET PO SCH ×2 (09:52→20:51)
[2022-01-02] MEDS: DOCUSATE SODIUM 100 MG/10 ML UDCUP PO SCH (09:52)
[2022-01-02] MEDS: CHOLECALCIFEROL 1,000 UNIT TABLET PO SCH (09:52)
[2022-01-02] MEDS: risperiDONE 1 MG TABLET PO SCH (20:51)
[2022-01-02] MEDS: ATORVASTATIN 80 MG TABLET PO SCH (20:51)
[2022-01-03] MEDS: METOPROLOL TARTRATE 5 MG/5 ML VIAL IV SCH ×3 (00:30→12:32)
[2022-01-03] MEDS: ALBUTEROL/IPRATROPIUM 3 ML NEB RESP TX SCH ×2 (01:04→07:56)
[2022-01-03 06:07] LABS: Calcium 8.6 MG/DL (8.5-10.1); Osmolality,Calculated 293.3 MOS/KG (273-304); Potassium 3.2 MMOL/L (3.5-5.1)
[2022-01-03 06:27] LABS: Basophils % 0.4 % (0.0-0.8); Eosinophils # 0.1 10*3/uL (0.0-0.87); Eosinophils % 3.3 % (0.00-10.9); Hemoglobin 10.3 GM/DL (12.0-16.0); Immature Granulocytes % 0.4 %; Immature Granulocytes Absolute 0.01 #; Lymphocytes # 0.8 10*3/uL (1.4-4.0); Mean Corpuscular HGB Conc 29.1 GM/DL (32-36); Mean Corpuscular Volume 85.9 FL (87-102); Mean Platelet Volume 10.3 FL (9.6-12.0); Monocytes # 0.3 10*3/uL (0.11-0.8); Monocytes % 9.5 % (1.7-12.7); Neutrophils % 58.4 % (38.7-73.9); Platelet Count 137 T/CUMM (130-400); Red Blood Count 4.12 MC/CUMM (3.8-5.5); Red Cell Distribution Width 21.2 % (9.3-17.3); White Blood Count 2.8 T/CUMM (4-12)
[2022-01-03 06:28] LABS: Hematocrit 35.4 VOL% (35.7-47.0)
[2022-01-03] MEDS: INSULIN LISPRO 100 UNIT/ML SUBCUT SCH ×2 (07:46→12:05)
[2022-01-03] MEDS: FUROSEMIDE 20 MG/2 ML VIAL IV SCH (10:43)
[2022-01-03] MEDS: CHOLECALCIFEROL 1,000 UNIT TABLET PO SCH (10:44)
[2022-01-03] MEDS: DOCUSATE SODIUM 100 MG/10 ML UDCUP PO SCH (10:44)
[2022-01-03] MEDS: ASPIRIN CHEW 81 MG TABLET PO SCH (10:44)
[2022-01-03] MEDS: FERROUS SULFATE 325 MG TABLET PO SCH (10:45)
[2022-01-03] MEDS: APIXABAN 2.5 MG TABLET PO SCH (10:45)
[2022-01-03] MEDS: MULTIVITAMIN (CENTRUM) TABLET PO SCH (10:45)
[2022-01-03] MEDS: ISOSORBIDE MONONITRATE 30 MG TABLET PO SCH (10:45)
[2022-01-03] MEDS: PANTOPRAZOLE 40 MG TABLET PO SCH (10:45)
[2022-01-03] MEDS ORDERED: POTASSIUM CHLORIDE 20 MEQ TABLET PO ONE ×2 (11:00→13:00)
[2022-01-03 12:13] VITALS: BP 100/71
== END 2022-01-03 13:05 | disposition swing bed (61) | DRG 207 ==
LOC: N.CC 05:08 → SUATTDRO 05:08 → N.5E 12-19 17:15
PROVIDERS: ADMIT Internal Medicine; ATTEND Internal Medicine